=== PATIENT | female | born 1955 | race Caucasian/White ===

== ENCOUNTER → 2017-05-03 | Outpatient (CLI) | payer MEDICARE ==
--- NOTE | 2017-05-03 18:46 | Diagnostic Imaging Report ---
INDICATION: Routine screening. Comparison is made with prior studies from 08/17/2015 and 03/30/2014. The current study was also evaluated with a Computer Aided Detection (CAD) system. FINDINGS: Moderate parenchymal density is noted bilaterally. A well-defined nodule in the inner aspect of the left breast is noted and appears benign. No new mass or malignant-appearing microcalcifications are seen. The axillae are unremarkable. IMPRESSION: No mammographic features suspicious for malignancy are identified. ACR BI-RADS Category 2: Benign findings. Result letter will be mailed to the patient. Note: At least 10% of breast cancer is not imaged by mammography. Dictated by: Dictated on workstation # [id number]
== END ==
LOC: RAD 10:43
PROVIDERS: ATTEND Family Medicine
DX: Z12.31 Encounter for screening mammogram for malignant neoplasm of breast (principal)
CPT/HCPCS: 77067

== ENCOUNTER → 2017-10-11 | Outpatient (CLI) | payer MEDICARE ==
--- NOTE | 2017-10-11 10:07 | Diagnostic Imaging Report ---
INDICATION: Osteoporosis screening. Comparison is made with prior exam from 03/21/2013. Bone mineral analysis of the lumbar spine and both hips was performed. Bone mineral density of the lumbar spine L2-L4 is 1.155 with a T score -0.4. This compares with 1.115 and -0.7. Bone mineral density left femoral neck is 0.794 with T score -1.8. This compares with 0.768 and -1.9. Bone mineral density right femoral neck 0.877 with a T score of -1.2. This compares with 0.798 and -1.7. IMPRESSION: Normal bone mineral density of the lumbar spine with osteopenia of bilateral femoral necks. Dictated by: Dictated on workstation # [id number]
== END ==
LOC: RAD 08:57
PROVIDERS: ATTEND Internal Medicine
DX: Z13.820 Encounter for screening for osteoporosis (principal); M85.88 Other specified disorders of bone density and structure, other site; S82.841A Displaced bimalleolar fracture of right lower leg, initial encounter for closed fracture
CPT/HCPCS: 77080

== ENCOUNTER → 2020-03-23 | Outpatient (CLI) | payer MEDICARE ==
--- NOTE | 2020-03-23 13:15 | Diagnostic Imaging Report ---
INDICATION: Postmenopausal. COMPARISON: This study was compared to the prior exam of 10/11/2017. FINDINGS: The T-score for the spine is -0.5. On prior exam, the T-score was -0.4. The total T-score for the left hip is -1.0 and for the right hip -1.1. On the prior exam, the respective T-scores were -1.2 and -0.8. The T-score for the left femoral neck is -2.0 and for the right femoral neck -1.8. On the prior exam, the scores were -1.8 and -1.2. AP Spine L1-L4: [BMD (g/cm2): 1.140] [T-Score: -0.5] [Z-Score: 0.3] [BMD Previous: 1.155] [BMD % Change: -1.3] LT Hip Neck: [BMD (g/cm2): 0.755] [T-Score: -2.0] [Z-Score: -1.1] LT Hip Total: [BMD (g/cm2):0.881] [T-Score:-1.0] [Z-Score: -0.4] [BMD Previous: 0.862] [BMD % Change: 2.2] RT Hip Neck: [BMD (g/cm2):0.784] [T-Score:-1.8] [Z-Score:-0.9] RT Hip Total: [BMD (g/cm2):0.874] [T-score:-1.1] [Z-Score:-0.4] [BMD Previous:0.913] [BMD % Change:-4.3] *Indicates significant change from prior examination based on 95% confidence level. World Health Organization criteria for BMD interpretation classify patients as Normal (T-score at or above -1.0), Osteopenic (T-score between -1.0 and -2.5) or Osteoporotic (T-score at or below -2.5). LIMITATIONS AND MODIFICATION: None. FRACTURE RISK (FRAX SCORE): The ten year probability of (%): Major Osteoporotic Fracture: [16.4] Hip Fracture: [2.3] IMPRESSION: 1. The bone mineral density of the spine is essentially no different than on the prior exam. The T-score remains within normal limits. 2. The total T-score for the left hip has improved and the T-score is now at the lower extent of normal. Conversely, there has been a decrease in the bone mineral density of the right hip and the T-score now indicates mild osteopenia. 3. There has also been a decrease in the bone mineral density of each femoral neck. However, the T-score values remain within the range of osteopenia. 4. See below National Osteoporosis Foundation guidelines on when to potentially initiate pharmacologic therapy. Based on the National Osteoporosis Foundation Guidelines, pharmacologic treatment should be initiated in any of the following, unless clinical conditions suggest otherwise: * Any patient with prior fragility fracture of the hip or vertebrae. A spine fracture indicates 5X risk for subsequent spine fracture and 2X risk for subsequent hip fracture. * Osteoporosis (T-score <-2.5). * Postmenopausal women and men age 50 and older with low bone mass/osteopenia (T-score between -1.0 and -2.5) by DXA and 10-year major osteoporotic fracture greater than 20% or a 10-year probability of hip fracture greater than 3%. These fracture risks are supplied above in the FRAX score, if applicable. * Clinician judgement and/or patient preferences may indicate treatment for people with 10-year fracture probabilities above or below these levels. Dictated by: Dictated on workstation # [id number]
== END ==
LOC: RAD 10:31
PROVIDERS: ATTEND Internal Medicine
DX: M85.89 Other specified disorders of bone density and structure, multiple sites (principal); N95.9 Unspecified menopausal and perimenopausal disorder
CPT/HCPCS: 77080

== ENCOUNTER 2020-06-28 07:12 | Outpatient (RCR) | payer MEDICARE ==
[~2020-06-28] VITALS: Ht 160 cm; Wt 81.3 kg
[2020-06-28] MEDS ORDERED: VORT10TA PO (13:48)
[2020-06-28] MEDS ORDERED: BREX2TAB PO (13:48)
[2020-06-28] MEDS ORDERED: SULI150T PO (13:48)
[2020-06-28] MEDS ORDERED: AMLO-250 PO (13:48)
[2020-06-28] MEDS ORDERED: GABA800T10 PO (13:48)
[2020-06-28] MEDS ORDERED: HYDR-3820 PO (13:48)
[2020-06-28] MEDS ORDERED: TIZA4CAP PO (13:48)
[2020-06-28] MEDS ORDERED: MTP100TCR PO (13:48)
[2020-06-28] MEDS ORDERED: TEMA15CA PO (13:48)
== END 2020-06-28 14:08 | disposition home or self-care (01) ==
LOC: PREOP 07:12
PROVIDERS: ATTEND Surgery
DX: Z01.818 Encounter for other preprocedural examination (principal)

== ENCOUNTER → 2020-06-28 | Outpatient (CLI) | payer MEDICARE ==
[~2020-06-28] MED LIST: AMLO-250 PO; BREX2TAB PO; GABA800T10 PO; HYDR-3820 PO; MTP100TCR PO; SULI150T PO; TEMA15CA PO; TIZA4CAP PO; VORT10TA PO
--- NOTE | 2020-06-28 20:35 | Diagnostic Imaging Report ---
INDICATION: Routine screening. Comparison is made with prior mammogram 05/03/2017 and 08/17/2015. 2-D and 3-D bilateral screening mammography was performed with CAD. The current study was also evaluated with a Computer Aided Detection (CAD) system. 3-D tomosynthesis was also performed and reviewed. Both breasts are heterogeneously dense, limiting the sensitivity of mammography. The parenchymal pattern is stable. No mass or malignant appearing microcalcifications are seen. There are benign calcifications. Axillae are unremarkable. IMPRESSION: No mammographic features suspicious for malignancy are identified. ACR BI-RADS Category 2: Benign findings. Result letter will be mailed to the patient. Note: At least 10% of breast cancer is not imaged by mammography. Dictated by: Dictated on workstation # [id number]
== END ==
LOC: RAD 14:14
PROVIDERS: ATTEND Nurse Practitioner Family
DX: Z12.31 Encounter for screening mammogram for malignant neoplasm of breast (principal)
CPT/HCPCS: 77063; 77067

== ENCOUNTER 2020-07-05 10:23 | Day surgery (SDC) | payer MEDICARE ==
[~2020-07-05] VITALS: Ht 160 cm; Wt 81.3 kg
[2020-07-05] MEDS ORDERED: LACTATED RINGERS 1,000 ML IV ONE (10:25)
[2020-07-05] MEDS ORDERED: LACTATED RINGERS 1,000 ML IV STA (10:31)
[2020-07-05 10:42] VITALS: BP 147/91
[2020-07-05] MEDS ORDERED: HURRICAINE EXT TUBE (BENZOCAINE) XX PRN (10:45)
--- NOTE | 2020-07-05 11:32 | Progress Note-Pre Operative ---
Pre-Operative Progress Note H&P Reviewed The H&P was reviewed, patient examined and no changes noted. Time Seen by Provider: 11:29 Date H&P Reviewed: Jul 05, 2020 Time H&P Reviewed: 11:30 Pre-Operative Diagnosis: N/V, MARTITA Castillo DO Jul 05, 2020 11:32
[2020-07-05] MEDS ORDERED: HURRICAINE EXT TUBE (BENZOCAINE) ONE (11:49)
[2020-07-05] MEDS ORDERED: MIDAZOLAM 2 MG/2 ML (VERSED) VIAL ONE (11:53)
[2020-07-05] MEDS ORDERED: PROPOFOL INJECTION 50 ML IV ONE (11:53)
[2020-07-05 12:30] VITALS: BP 90/50
--- NOTE | 2020-07-05 12:32 | Progress Note-Post Operative ---
Post-Operative Progess Note Surgeon (s)/General Surgeon (s) Surgeon MARTITA WHITE DO General Surgeon: none Pre-Operative Diagnosis N/V, Screening Post-Operative Diagnosis ? gastric ulcer Poor prep int hemorrhoids Procedure & Operative Findings Date of Procedure 07/05/20 Procedure Performed/Findings EGD with bx Colon Anesthesia Type IV sedation by DOOR ASSEMBLER Estimated Blood Loss Estimated blood loss (mL): scant Specimens/Packing Specimens Removed stomach bx GE jxn bx MARTITA WHITE DO Jul 05, 2020 12:32
--- NOTE | 2020-07-05 12:33 | Endoscopy Discharge Instruct ---
Endo Procedure/Findings Findings 1.: Gastric Ulcer 2.: Other Findings (Poor Prep) 3.: Internal Hemorrhoids Discharge Instructions - Activity: You might feel a little sleepy until tomorrow. This is due to the medicine you received to relax you. Until tomorrow, you should: NOT drive a car, operate machinery or power tools. NOT drink any alcoholic beverages. NOT make any important decisions or sign importortant papers. Do not return to work until tomorrow, unless otherwise instructed. Resume previous activities tomorrow. Diet: Start by taking liquids. If you tolerate liquids, advance to solid food. 1.: Colonoscopy in 1 year, EGD in 3 years Notify Physician - If you experience excessive bleeding, unusual abdominal pain, fever, or chest pain, contact your doctor immediately. MARTITA WHITE DO Jul 05, 2020 12:33
[2020-07-05 12:35] VITALS: BP 99/55
[2020-07-05 12:40] VITALS: BP 150/67
[2020-07-05 13:05] VITALS: BP 164/88
[2020-07-05 13:15] VITALS: BP 164/88
--- NOTE | 2020-07-05 13:25 | Anesthesia-General Post-Op ---
MAC Patient Condition Mental Status/LOC: Same as Preop Cardiovascular: Satisfactory Nausea/Vomiting: Absent Respiratory: Satisfactory Pain: Controlled Complications: Absent Post Op Complications Complications None Follow Up Care/Instructions Patient Instructions None needed. Anesthesiology Discharge Order Discharge Order Patient is doing well, no complaints, stable vital signs, no apparent adverse anesthesia problems. No complications reported per nursing. JODEE MORALES CRNA Jul 05, 2020 13:25
--- NOTE | 2020-07-06 21:27 | OPERATIVE REPORT ---
DATE OF SERVICE: 07/05/2020 PREOPERATIVE DIAGNOSES: Nausea, vomiting and screening colonoscopy. POSTOPERATIVE DIAGNOSES: 1. Questionable stomach ulcer. 2. Poor prep and internal hemorrhoids. PROCEDURES: 1. EGD with biopsy. 2. Colonoscopy. SURGEON: Tommy Pedroza DO BARREL LINE OPERATOR: None. ANESTHESIA: IV sedation by the MERCHANDISING INTERN. SPECIMEN: Biopsy from the stomach remnant as well as biopsy of the GE junction. BLOOD LOSS: Scant. FLUIDS: Per anesthesia. POSTOPERATIVE CONDITION: Stable. INDICATION FOR PROCEDURE: The patient is a 64-year-old female who has been having some nausea, vomiting with a history of gastric bypass Yassine-en-Y needed a workup. She has also never had a colonoscopy or has not had one in 10 years and needs a screening. FINDINGS: The patient had a questionable ulcer in the stomach remnant and had a poor prep, so could not really assess the colon, she did have some internal hemorrhoids. PROCEDURE NOTE: After informed consent was obtained, the patient was brought to the endoscopy suite, placed in bed in left lateral decubitus position. She was administered IV sedation by the MERCHANDISING INTERN who then monitored her vitals the entire time, heart rate, blood pressure and pulse ox. We started with the EGD, placing scope down the mouth through the esophagus and into the remnant of the stomach. We were right into the small intestine, looked at both limbs of the small intestine, they looked okay. We pulled back into the stomach, looked like there may have been an ulcer, took a picture of this and did a biopsy there and then did a biopsy at the GE junction. At this point then pulled the scope up the esophagus and out the mouth. Switched camera, switched gloves, went down below and started the colonoscopy. Unfortunately, she had a lot of retained fecal material, mostly liquid, but some solid pieces, unable to suction all of it out. Able to get the scope all the way just outside the cecum in the ascending colon, took a picture of the cecum and what looked like the appendiceal orifice and then slowly withdrew the scope insufflating the circumferential singh, unfortunately unable to see all the singh because of the retained fecal material and unable to be suctioned all this out, took a picture of this, went down the transverse colon into the splenic flexure, descending colon, sigmoid and rectum and she had some small internal hemorrhoids. At this point, I removed the scope. She will need a repeat in a year because we could not see all of the singh. She tolerated the procedure well and was recovered in endoscopy suite. Job ID: [id number] DocumentID: [id number] Dictated Date: 07/06/2020 17:25:34 Baggage Checker Date: 07/06/2020 21:26:46 Dictated By: TOMMY PEDROZA DO
== END 2020-07-05 13:15 | disposition home or self-care (01) ==
LOC: ENDO 10:23
PROVIDERS: ATTEND Surgery
DX: Z12.11 Encounter for screening for malignant neoplasm of colon (principal); K20.90 Esophagitis, unspecified without bleeding; K29.50 Unspecified chronic gastritis without bleeding; K64.8 Other hemorrhoids; I10 Essential (primary) hypertension; F41.9 Anxiety disorder, unspecified; F32.9 Major depressive disorder, single episode, unspecified; Z79.899 Other long term (current) drug therapy; Z88.0 Allergy status to penicillin; Z88.2 Allergy status to sulfonamides; Z88.8 Allergy status to other drugs, medicaments and biological substances; Z80.3 Family history of malignant neoplasm of breast; Z80.1 Family history of malignant neoplasm of trachea, bronchus and lung
CPT/HCPCS: 43239; G0121; 88305; 88342

== ENCOUNTER 2020-11-04 16:02 | Emergency (ER) | payer MEDICARE ==
[~2020-11-04] VITALS: Ht 157.4 cm; Wt 78.0 kg
--- NOTE | 2020-11-04 16:35 | ED Cardiac General ---
History of Present Illness General Chief Complaint: Cardiac/General Problems Stated Complaint: HIGH BLOOD PRESSURE Source: patient Exam Limitations: no limitations (RANCHO CLEMENT APRN) History of Present Illness Date Seen by Provider: Nov 04, 2020 Time Seen by Provider: 16:33 Initial Comments Take 2 to ER from [facility] with reports of high blood pressure at 220/108. She has taken a total of 300 mg of Toprol-XL. She had a knee replacement 1 month ago. She ran out of a 28-day supply of hydrocodone in 14 days. Her last dose was just before she came. She has no symptoms. Timing/Duration: changing over time Severity: moderate Activities at Onset: none Prior CP/Workup: no prior chest pain NTG SL CRYSTAL MOUNTER: No ASA po CRYSTAL MOUNTER: No Associated Systoms: Headaches (RANCHO CLEMENT APRN) Allergies and Home Medications Allergies Coded Allergies: Penicillins (Verified Allergy, Unknown, 06/28/20) Sulfa (Sulfonamide Antibiotics) (Verified Allergy, Unknown, 06/28/20) doxepin (Verified Allergy, Unknown, 06/28/20) escitalopram (Verified Allergy, Unknown, 06/28/20) lithium (Verified Allergy, Unknown, 06/28/20) Home Medications Amlodipine Besylate 5 Mg Tablet, 5 MG PO DAILY, (Reported) Brexpiprazole 2 Mg Tablet, 2 MG PO DAILY, (Reported) Gabapentin 800 Mg Tablet, 4,200 MG PO DAILY, (Reported) Hydrocodone/Acetaminophen 1 Each Tablet, 1 EACH PO TID, (Reported) Lisinopril 10 Mg Tablet, 10 MG PO DAILY Prescribed by: RANCHO CLEMENT on 11/04/20 456 Metoprolol Succinate 100 Mg Tab.er.24h, 100 MG PO DAILY, (Reported) Sulindac 150 Mg Tablet, 150 MG PO DAILY, (Reported) Temazepam 15 Mg Capsule, 15 MG PO DAILY, (Reported) Tizanidine HCl 4 Mg Capsule, 4 MG PO DAILY, (Reported) Vortioxetine Hydrobromide 10 Mg Tablet, 10 MG PO DAILY, (Reported) Patient Home Medication List Home Medication List Reviewed: Yes (RANCHO CLEMENT APRN) Review of Systems Review of Systems Constitutional: see HPI EENTM: No Symptoms Reported Respiratory: No Symptoms Reported Cardiovascular: No Symptoms Reported Gastrointestinal: See HPI, Abdominal Pain Genitourinary: No Symptoms Reported Musculoskeletal: no symptoms reported Skin: no symptoms reported Psychiatric/Neurological: No Symptoms Reported Endocrine: No Symptoms Reported Hematologic/Lymphatic: No Symptoms Reported (RANCHO CLEMENT APRN) Past Tgwkdke-Fvuplt-Dlxbab Hx Seasonal Allergies Seasonal Allergies: No (RANCHO CLEMENT APRN) Past Medical History Surgeries: Yes Gallbladder, Orthopedic Respiratory: No Cardiac: Yes Hypertension Neurological: No Genitourinary: No Gastrointestinal: Yes Chronic Constipation Musculoskeletal: Yes Arthritis, Chronic Back Pain Endocrine: No HEENT: No Cancer: No Psychosocial: Yes Anxiety, Bipolar, Depression Integumentary: No Blood Disorders: No (RANCHO CLEMENT APRN) Physical Exam Vital Signs Vital Signs - First Documented 11/04/20 16:30 Temp 36.8 Pulse 96 Resp 18 B/P (MAP) 241/106 (151) Pulse Ox 95 (CHANEL JURADO MD) Vital Signs Capillary Refill : (RANCHO CLEMENT APRN) Height, Weight, BMI Height: '" Weight: lbs. oz. kg; 31.75 BMI Method: General Appearance: No Apparent Distress, WD/WN Neck: Full Range of Motion, Normal Inspection Respiratory: No Accessory Muscle Use, No Respiratory Distress Cardiovascular: Regular Rate, Rhythm, Normal Peripheral Pulses, Other (Heart rate is 92 sinus) Gastrointestinal: Non Tender, Soft Extremity: Normal Capillary Refill, Normal Inspection, Other (left knee inc ision clean dry intact. trace edema left leg not unexpected after knee replacement. ) Neurologic/Psychiatric: Alert, Oriented x3 Skin: Normal Color, Warm/Dry (RANCHO CLEMENT APRN) Progress/Results/Core Measures Results/Orders Lab Results Laboratory Tests Test 11/04/20 16:37 Range/Units White Blood Count 6.9 4.3-11.0 10^3/uL Red Blood Count 4.67 3.80-5.11 10^6/uL Hemoglobin 12.9 11.5-16.0 g/dL Hematocrit 42 35-52 % Mean Corpuscular Volume 91 80-99 fL Mean Corpuscular Hemoglobin 28 25-34 pg Mean Corpuscular Hemoglobin Concent 31 L 32-36 g/dL Red Cell Distribution Width 14.1 10.0-14.5 % Platelet Count 305 130-400 10^3/uL Mean Platelet Volume 9.9 9.0-12.2 fL Immature Granulocyte % (Auto) 0 % Neutrophils (%) (Auto) 62 42-75 % Lymphocytes (%) (Auto) 26 12-44 % Monocytes (%) (Auto) 7 0-12 % Eosinophils (%) (Auto) 3 0-10 % Basophils (%) (Auto) 1 0-10 % Neutrophils # (Auto) 4.3 1.8-7.8 10^3/uL Lymphocytes # (Auto) 1.8 1.0-4.0 10^3/uL Monocytes # (Auto) 0.5 0.0-1.0 10^3/uL Eosinophils # (Auto) 0.2 0.0-0.3 10^3/uL Basophils # (Auto) 0.1 0.0-0.1 10^3/uL Immature Granulocyte # (Auto) 0.0 0.0-0.1 10^3/uL Prothrombin Time 12.4 12.2-14.7 SEC INR Comment 0.9 0.8-1.4 Activated Partial Thromboplast Time 31 24-35 SEC Sodium Level 146 H 135-145 MMOL/L Potassium Level 4.5 3.6-5.0 MMOL/L Chloride Level 106 98-107 MMOL/L Carbon Dioxide Level 23 21-32 MMOL/L Anion Gap 17 H 5-14 MMOL/L Blood Urea Nitrogen 11 7-18 MG/DL Creatinine 0.83 0.60-1.30 MG/DL Estimat Glomerular Filtration Rate 70 BUN/Creatinine Ratio 13 Glucose Level 156 H 70-105 MG/DL Calcium Level 10.0 8.5-10.1 MG/DL Corrected Calcium 8.5-10.1 MG/DL Magnesium Level 1.9 1.6-2.4 MG/DL Total Bilirubin 0.4 0.1-1.0 MG/DL Aspartate Amino Transf (AST/SGOT) 31 5-34 U/L Alanine Aminotransferase (ALT/SGPT) 28 0-55 U/L Alkaline Phosphatase 219 H 40-136 U/L Myoglobin 23.6 10.0-92.0 NG/ML Troponin I < 0.028 <0.028 NG/ML Total Protein 8.2 6.4-8.2 GM/DL Albumin 4.6 H 3.2-4.5 GM/DL (CHANEL JURADO MD) Vital Signs/I&O 11/04/20 11/04/20 16:30 18:07 Temp 36.8 Pulse 96 86 Resp 18 18 B/P (MAP) 241/106 (151) 168/98 (151) Pulse Ox 95 95 (CHANEL JURADO MD) Departure Communication (Admissions) 1748-blood pressure 189/99 heart rate 81. I will give her a prescription for lisinopril to add at home. She states her BP is usually quite high at home 1805-BP 168/98. HR 81. Will dc to home with daughter. Copy of labs given. (RANCHO CLEMENT APRN) Communication (PCP) Brought to the (RANCHO CLEMENT APRN) Impression Primary Impression: Hypertension Disposition: HOME, SELF-CARE Condition: Stable Departure-Patient Inst. Decision time for Depature: 17:42 (RANCHO CLEMENT APRN) Referrals: MAGDI LOUIS MD (PCP/Family) Primary Care Physician Patient Instructions: High Blood Pressure ED Add. Discharge Instructions: 1. Add the lisinopril to your metoprolol. Follow-up with primary care. All discharge instructions reviewed with patient and/or family. Voiced understanding. Scripts Lisinopril (Lisinopril) 10 Mg Tablet 10 MG PO DAILY, #14 TAB Prov: RANCHO CLEMENT APRN 11/04/20 ATTENDING PHYSICIAN NOTE: I was physically present as attending physician in the emergency department d uring the care of this patient, but I was not directly involved in the decision making or delivery of care for this patient. (CHANEL JURADO MD) RANCHO CLEMENT APRN Nov 04, 2020 16:35 CHANEL JURADO MD Nov 05, 2020 20:44
[2020-11-04] MEDS ORDERED: cloNIDine 0.1 MG (CATAPRES) TAB PO ONE (16:45)
[2020-11-04 16:48] LABS: BASOPHILS # (AUTO) 0.1 10^3/uL (0.0-0.1); BASOPHILS % (AUTO) 1 % (0-10); EOSINOPHILS # (AUTO) 0.2 10^3/uL (0.0-0.3); EOSINOPHILS % (AUTO) 3 % (0-10); HEMATOCRIT 42 % (35-52); HEMOGLOBIN 12.9 g/dL (11.5-16.0); LYMPHOCYTES # (AUTO) 1.8 10^3/uL (1.0-4.0); LYMPHOCYTES % (AUTO) 26 % (12-44); MEAN CORPUSCULAR HEMOGLOBIN 28 pg (25-34); MEAN CORPUSCULAR HGB CONC 31 g/dL (32-36); MEAN CORPUSCULAR VOLUME 91 fL (80-99); MEAN PLATELET VOLUME 9.9 fL (9.0-12.2); MONOCYTES # (AUTO) 0.5 10^3/uL (0.0-1.0); MONOCYTES % (AUTO) 7 % (0-12); NEUTROPHILS # (AUTO) 4.3 10^3/uL (1.8-7.8); NEUTROPHILS % (AUTO) 62 % (42-75); PLATELET COUNT 305 10^3/uL (130-400); WHITE BLOOD COUNT 6.9 10^3/uL (4.3-11.0)
--- NOTE | 2020-11-04 16:59 | Diagnostic Imaging Report ---
INDICATION: Chest pain. Frontal chest obtained at 4:53 p.m. Heart and mediastinal silhouette are normal in appearance. The lungs are clear. There is no pneumothorax or pleural fluid. IMPRESSION: Negative chest. Dictated by: Dictated on workstation # [id number]
[2020-11-04 17:04] LABS: ALBUMIN 4.6 GM/DL (3.2-4.5)
[2020-11-04 17:05] LABS: CHLORIDE 106 MMOL/L (98-107); POTASSIUM 4.5 MMOL/L (3.6-5.0); SODIUM 146 MMOL/L (135-145)
[2020-11-04 17:07] LABS: GLUCOSE 156 MG/DL (70-105); TOTAL PROTEIN 8.2 GM/DL (6.4-8.2)
[2020-11-04 17:08] LABS: CARBON DIOXIDE 23 MMOL/L (21-32); INR 0.9 (0.8-1.4); PROTHROMBIN TIME PATIENT 12.4 SEC (12.2-14.7)
[2020-11-04 17:09] LABS: BILIRUBIN,TOTAL 0.4 MG/DL (0.1-1.0)
[2020-11-04 17:11] LABS: CREATININE SERUM 0.83 MG/DL (0.60-1.30); GFR ESTIMATED 70
[2020-11-04 17:12] LABS: BUN/CREATININE RATIO 13
[2020-11-04 17:14] LABS: ALANINE AMINOTRANSFERASE 28 U/L (0-55); MAGNESIUM 1.9 MG/DL (1.6-2.4)
[2020-11-04] MEDS ORDERED: lisINopril 20 MG (PRINIVIL) TABLET PO ONE (17:15)
[2020-11-04] MEDS ORDERED: KETOROLAC 30 MG/ML VIAL IVP ONE (17:15)
[2020-11-04] MEDS ORDERED: LISI10TA25 PO (17:43)
[2020-11-04 18:07] VITALS: BP 168/98
[2020-11-04 18:30] LABS: ALKALINE PHOSPHATASE 219 U/L (40-136)
== END 2020-11-04 18:07 | disposition home or self-care (01) ==
LOC: EDUNIT# 16:02 → ER 16:04
DX: I10 Essential (primary) hypertension (principal); G89.29 Other chronic pain; M54.9 Dorsalgia, unspecified; F32.9 Major depressive disorder, single episode, unspecified; Z79.891 Long term (current) use of opiate analgesic; Z79.899 Other long term (current) drug therapy
CPT/HCPCS: 36415; 71045; 80053; 83735; 83874; 84484; 85025; 85610; 85730; 93005; 93041

== ENCOUNTER 2020-11-11 17:29 | Observation (INO) | payer MEDICARE ==
[~2020-11-11] VITALS: Ht 160 cm; Wt 77.3 kg
[~2020-11-11 17:29] MED LIST changes: +LISI10TA25 PO
[2020-11-11] MEDS ORDERED: lisINopril 20 MG (PRINIVIL) TABLET PO ONE (18:00)
[2020-11-11] MEDS ORDERED: hydrALAZINE (APESOLINE) 20 MG/ML VIAL IV ONE ×3 (18:00→20:15)
[2020-11-11 18:02] LABS: BASOPHILS % (AUTO) 1 % (0-10); EOSINOPHILS # (AUTO) 0.1 10^3/uL (0.0-0.3); EOSINOPHILS % (AUTO) 2 % (0-10); HEMATOCRIT 44 % (35-52); HEMOGLOBIN 13.6 g/dL (11.5-16.0); LYMPHOCYTES # (AUTO) 1.5 10^3/uL (1.0-4.0); LYMPHOCYTES % (AUTO) 22 % (12-44); MEAN CORPUSCULAR HEMOGLOBIN 28 pg (25-34); MEAN CORPUSCULAR HGB CONC 31 g/dL (32-36); MEAN CORPUSCULAR VOLUME 90 fL (80-99); MEAN PLATELET VOLUME 9.5 fL (9.0-12.2); MONOCYTES # (AUTO) 0.4 10^3/uL (0.0-1.0); MONOCYTES % (AUTO) 6 % (0-12); NEUTROPHILS # (AUTO) 4.7 10^3/uL (1.8-7.8); NEUTROPHILS % (AUTO) 68 % (42-75); PLATELET COUNT 318 10^3/uL (130-400); WHITE BLOOD COUNT 6.9 10^3/uL (4.3-11.0)
--- NOTE | 2020-11-11 18:08 | ED Cardiac General ---
History of Present Illness General Chief Complaint: Cardiac/General Problems Stated Complaint: HIGH BLOOD PRESSURE / DIZZINESS / SENT OVER BY [facility] Source: patient History of Present Illness Date Seen by Provider: Nov 11, 2020 Time Seen by Provider: 18:05 Initial Comments To ER by private vehicle with reports of high blood pressure, dizziness. She was sent over by [facility]. She was seen here recently for the same. We gave her lisinopril and clonidine 0.2 mg and her pressure fell from 240 down to 160. She was sent home. She presented to [facility] again today for follow-up and was found again to be hypertensive at 220s over 100. She has taken 200 mg of metoprolol, 10 mg of Norvasc, 10 mg of lisinopril and has a 0.2 mg clonidine patch on. The patch was placed Sunday or Sunday. She denies chest pain or shortness of breath. She just saw Dr. Louis today and had a 24-hour urine sample ordered. Timing/Duration: changing over time Severity: moderate Location: central Prior CP/Workup: no prior chest pain NTG SL SUPPORT SERVICES SPECIALIST: No ASA po SUPPORT SERVICES SPECIALIST: No Associated Systoms: No Headaches, No Nausea/Vomiting Allergies and Home Medications Allergies Coded Allergies: Penicillins (Verified Allergy, Unknown, 06/28/20) Sulfa (Sulfonamide Antibiotics) (Verified Allergy, Unknown, 06/28/20) doxepin (Verified Allergy, Unknown, 06/28/20) escitalopram (Verified Allergy, Unknown, 06/28/20) lithium (Verified Allergy, Unknown, 06/28/20) Home Medications Amlodipine Besylate 5 Mg Tablet, 5 MG PO DAILY, (Reported) Brexpiprazole 2 Mg Tablet, 2 MG PO DAILY, (Reported) Gabapentin 800 Mg Tablet, 4,200 MG PO DAILY, (Reported) Hydrocodone/Acetaminophen 1 Each Tablet, 1 EACH PO TID, (Reported) Lisinopril 10 Mg Tablet, 10 MG PO DAILY Prescribed by: RANCHO CLEMENT on 11/04/20 4677 Metoprolol Succinate 100 Mg Tab.er.24h, 100 MG PO DAILY, (Reported) Sulindac 150 Mg Tablet, 150 MG PO DAILY, (Reported) Temazepam 15 Mg Capsule, 15 MG PO DAILY, (Reported) Tizanidine HCl 4 Mg Capsule, 4 MG PO DAILY, (Reported) Vortioxetine Hydrobromide 10 Mg Tablet, 10 MG PO DAILY, (Reported) Patient Home Medication List Home Medication List Reviewed: Yes Review of Systems Review of Systems Constitutional: see HPI EENTM: No Symptoms Reported Respiratory: No Symptoms Reported; Denies Cough, Denies Orthopnea, Denies Shortness of Air, Denies SOA With Exertion, Denies SOA at Rest Cardiovascular: No Symptoms Reported; Denies Chest Pain, Denies Lightheadedness Gastrointestinal: See HPI, Abdominal Pain Genitourinary: No Symptoms Reported Musculoskeletal: no symptoms reported Skin: no symptoms reported Psychiatric/Neurological: No Symptoms Reported Endocrine: No Symptoms Reported Hematologic/Lymphatic: No Symptoms Reported Past Gfgcnjt-Zioenp-Xwnsyk Hx Seasonal Allergies Seasonal Allergies: No Past Medical History Surgeries: Yes Gallbladder, Orthopedic Respiratory: No Cardiac: Yes Hypertension Neurological: No Genitourinary: No Gastrointestinal: Yes Chronic Constipation Musculoskeletal: Yes Arthritis, Chronic Back Pain Endocrine: No HEENT: No Cancer: No Psychosocial: Yes Anxiety, Bipolar, Depression Integumentary: No Blood Disorders: No Physical Exam Vital Signs Capillary Refill : Height, Weight, BMI Height: '" Weight: lbs. oz. kg; 31.00 BMI Method: General Appearance: No Apparent Distress, WD/WN HEENT: PERRL/EOMI, TMs Normal Neck: Full Range of Motion, Normal Inspection Respiratory: Normal Breath Sounds, No Accessory Muscle Use, No Respiratory Distress Gastrointestinal: Normal Bowel Sounds, Non Tender, Soft Extremity: Normal Capillary Refill, Normal Inspection Neurologic/Psychiatric: Alert, Oriented x3 Skin: Normal Color, Warm/Dry Progress/Results/Core Measures Results/Orders Lab Results Laboratory Tests Test 11/11/20 17:48 11/11/20 18:11 Range/Units White Blood Count 6.9 4.3-11.0 10^3/uL Red Blood Count 4.85 3.80-5.11 10^6/uL Hemoglobin 13.6 11.5-16.0 g/dL Hematocrit 44 35-52 % Mean Corpuscular Volume 90 80-99 fL Mean Corpuscular Hemoglobin 28 25-34 pg Mean Corpuscular Hemoglobin Concent 31 L 32-36 g/dL Red Cell Distribution Width 14.1 10.0-14.5 % Platelet Count 318 130-400 10^3/uL Mean Platelet Volume 9.5 9.0-12.2 fL Immature Granulocyte % (Auto) 0 % Neutrophils (%) (Auto) 68 42-75 % Lymphocytes (%) (Auto) 22 12-44 % Monocytes (%) (Auto) 6 0-12 % Eosinophils (%) (Auto) 2 0-10 % Basophils (%) (Auto) 1 0-10 % Neutrophils # (Auto) 4.7 1.8-7.8 10^3/uL Lymphocytes # (Auto) 1.5 1.0-4.0 10^3/uL Monocytes # (Auto) 0.4 0.0-1.0 10^3/uL Eosinophils # (Auto) 0.1 0.0-0.3 10^3/uL Basophils # (Auto) 0.0 0.0-0.1 10^3/uL Immature Granulocyte # (Auto) 0.0 0.0-0.1 10^3/uL Sodium Level 143 135-145 MMOL/L Potassium Level 4.8 3.6-5.0 MMOL/L Chloride Level 106 98-107 MMOL/L Carbon Dioxide Level 25 21-32 MMOL/L Anion Gap 12 5-14 MMOL/L Blood Urea Nitrogen 13 7-18 MG/DL Creatinine 1.16 0.60-1.30 MG/DL Estimat Glomerular Filtration Rate 47 BUN/Creatinine Ratio 11 Glucose Level 207 H 70-105 MG/DL Calcium Level 9.8 8.5-10.1 MG/DL Corrected Calcium 9.5 8.5-10.1 MG/DL Total Bilirubin 0.4 0.1-1.0 MG/DL Aspartate Amino Transf (AST/SGOT) 271 H 5-34 U/L Alanine Aminotransferase (ALT/SGPT) 146 H 0-55 U/L Alkaline Phosphatase 338 H 40-136 U/L Total Protein 7.8 6.4-8.2 GM/DL Albumin 4.4 3.2-4.5 GM/DL Urine Opiates Screen POSITIVE H NEGATIVE Urine Oxycodone Screen POSITIVE H NEGATIVE Urine Methadone Screen NEGATIVE NEGATIVE Urine Propoxyphene Screen NEGATIVE NEGATIVE Acetaminophen Level < 10 L 10-30 UG/ML Urine Barbiturates Screen NEGATIVE NEGATIVE Ur Tricyclic Antidepressants Screen NEGATIVE NEGATIVE Urine Phencyclidine Screen NEGATIVE NEGATIVE Urine Amphetamines Screen NEGATIVE NEGATIVE Urine Methamphetamines Screen NEGATIVE NEGATIVE Urine Benzodiazepines Screen POSITIVE H NEGATIVE Urine Cocaine Screen NEGATIVE NEGATIVE Urine Cannabinoids Screen NEGATIVE NEGATIVE Urine Color YELLOW Urine Clarity CLEAR Urine pH 5.5 5-9 Urine Specific [place] 1.020 1.016-1.022 Urine Protein NEGATIVE NEGATIVE Urine Glucose (UA) TRACE H NEGATIVE Urine Ketones NEGATIVE NEGATIVE Urine Nitrite NEGATIVE NEGATIVE Urine Bilirubin NEGATIVE NEGATIVE Urine Urobilinogen 1.0 < = 1.0 MG/DL Urine Leukocyte Esterase NEGATIVE NEGATIVE Urine RBC (Auto) NEGATIVE NEGATIVE Urine RBC NONE /HPF Urine WBC NONE /HPF Urine Crystals PRESENT H /LPF Urine Amorphous Sediment RARE TERRENCE URATES H /LPF Urine Bacteria NEGATIVE /HPF Urine Casts NONE /LPF Urine Mucus NEGATIVE /LPF Urine Culture Indicated NO My Orders Orders - RANCHO CLEMENT APRN Lisinopril Tablet (Zestril Tablet) (11/11/20 18:00) Cbc With Automated Diff (11/11/20 17:49) Comprehensive Metabolic Panel (11/11/20 17:49) Ua Culture If Indicated (11/11/20 17:49) Ed Iv/Invasive Line Start (11/11/20 17:49) Ekg Tracing (11/11/20 17:49) Hydralazine Injection (Apresoline Inject (11/11/20 18:00) Drug Screen Stat (Urine) (11/11/20 18:30) Acetaminophen (11/11/20 18:30) Medications Given in ED Current Medications Medications Dose Ordered Sig/Kavon Route Start Time Stop Time Status Last Admin Dose Admin Hydralazine HCl 10 mg ONCE ONCE IV 11/11/20 18:00 11/11/20 18:01 DC 11/11/20 18:18 10 MG Lisinopril 20 mg ONCE ONCE PO 11/11/20 18:00 11/11/20 18:01 DC 11/11/20 18:29 20 MG Diagnostic Imaging Diagonstic Imaging: Xray Plain Films/CT/US/NM/MRI: chest Comments NAME: RANDY BEYER Enrike VANCE REC#: [id number] PT STATUS: REG ER : 1955 PHYSICIAN: RANCHO CLEMENT APRN ADMIT DATE: 11/11/20/ER Draft Date of Exam:11/11/20 CT ANGIO HEAD/NECK PROCEDURE: CT angiography of the head and CT angiography of the neck with and without contrast. TECHNIQUE: Contiguous noncontrast images were obtained from the skull base through the vertex. After intravenous contrast administration, helical CT angiography of the neck was performed. Source data was reformatted into 3D MIP projections. Delayed post contrast acquisition was also obtained. Auto Exposure Controls were utilized during the CT exam to meet ALARA standards for radiation dose reduction. INDICATION: 64-year-old female, dizziness, hypertension x1 week. Approximately 4 weeks post knee surgery. COMPARISON: None FINDINGS: NONCONTRAST CT HEAD: Generalized atrophic changes with prominence of the ventricles and sulci. There is also prominent extra-axial CSF particularly in the frontal lobe region likely owing to the atrophic changes. There is no abnormal areas of decreased attenuation to suggest edema. No midline shift or mass effect. No intracranial hemorrhage. Bony calvarium appearing to be intact. Visualized paranasal sinuses and mastoid air cells generally clear. CTA NECK: Aorta: Aortic arch is limited in evaluation with artifact present. Does appear relatively normal, with standard three vessel branching pattern. Right Common/Internal/External Carotid Artery: Tortuous slightly retropharyngeal course of the right common carotid artery. Trace calcification carotid bifurcation. No stenosis. There is slight kinking at the proximal right internal carotid artery with a tortuous course. Slight folding of the internal carotid artery is noted. There is patency to the skull base. External carotid artery is patent. Left Common/Internal/External Carotid Artery: Tortuous course of the left common carotid artery slightly folding on itself. Trace calcification of the carotid bifurcation. No stenosis. There is a tortuous, redundant course of the left internal carotid arteries patent to the skull base. External carotid artery patent. Vertebral arteries: Relatively codominant bilateral vertebral artery. There does appear to be slight narrowing at the origin of the left vertebral artery. Tortuous course of the bilateral vertebral arteries patent to the skull base, terminating into the basilar artery. Non-vascular: Groundglass opacities of the lung apices could reflect edema versus infiltrate. The airway is patent. Postoperative changes of the cervical spine at C5-C7. Likely corpectomy at C6. CTA HEAD: Anterior Circulation: Mild calcified plaque of the terminal internal carotid arteries without definitive stenosis. The bilateral middle cerebral arteries are patent and without stenosis. The anterior cerebral arteries are patent and without stenosis. Posterior Circulation: The bilateral intracranial segments of the vertebral arteries are patent. The basilar artery is patent and without stenosis. Posterior cerebral arteries are patent with persistent origin of the left DIRECTOR MEDICAL WRITING. Post Contrast Head: No concerning enhancement on delayed post-contrast imaging. IMPRESSION: 1. Negative CTA of the head. 2. Negative CTA of the neck. 3. Negative for acute intracranial abnormality. Dictated on workstation # [id number] Dict: 11/11/201946 Trans: 11/11/202015 [facility] [id number] Interpreted by: ROXI WHITAKER DO Electronically signed by: Departure Communication (Admissions) Family Conversation 184-She has a new elevation of liver function tests. She has a blood pressure of 220/100 despite her 10 mg Norvasc, 10 mg lisinopril, clonidine 0.2 mg patch, Toprol-XL 200 mg. I ordered 20 additional milligrams of lisinopril here, hydralazine 10 mg IV here. We will plan to admit for malignant hypertension with newly elevated liver function tests. Obtain renal artery ultrasound in the morning. Dr Simmons agrees wit this plan, we'll consult cardiology. Given her dizziness today I will obtain a CT angio head and neck to make sure that this hypertension is not a physiologic response to cerebral ischemia. I discussed w ith her any Tylenol use to control her knee pain that could be contributing to the elevated liver function tests and she denies any Tylenol use. 2033-angio head and neck is unremarkable. Blood pressure still 213/100. She has received 20 mg of lisinopril here, 10 mg of labetalol IV, 10 mg of hydralazine IV, and then 20 mg of hydralazine IV. I will give her a 0.1 mg clonidine tablet p.o. Her patches 0.2 mg. She is still asymptomatic alert and oriented talking and laughing with me. Has no complaints other than ongoing dizziness. EKG at 1802 shows sinus rhythm rate of [address] segment changes no ectopy Impression Primary Impression: Malignant hypertension Additional Impression: Elevated LFTs Disposition: ADMITTED INPATIENT Condition: Stable Admissions Decision to Admit Reason: Admit from ER (General) Decision to Admit/Date: Nov 11, 2020 Time/Decision to Admit Time: 18:37 Departure-Patient Inst. Referrals: MAGDI LOUIS MD (PCP/Family) Primary Care Physician RANCHO CLEMENT APRN Nov 11, 2020 18:07
[2020-11-11 18:14] LABS: ALBUMIN 4.4 GM/DL (3.2-4.5)
[2020-11-11 18:15] LABS: POTASSIUM 4.8 MMOL/L (3.6-5.0)
[2020-11-11 18:16] LABS: CALCIUM 9.8 MG/DL (8.5-10.1)
[2020-11-11 18:17] LABS: TOTAL PROTEIN 7.8 GM/DL (6.4-8.2)
[2020-11-11 18:19] LABS: BILIRUBIN,TOTAL 0.4 MG/DL (0.1-1.0)
[2020-11-11 18:21] LABS: CREATININE SERUM 1.16 MG/DL (0.60-1.30)
[2020-11-11 18:27] LABS: BILIRUBIN,URINE NEGATIVE (NEGATIVE); CLARITY,URINE CLEAR; COLOR,URINE YELLOW; GLUCOSE, URINE (UA) TRACE (NEGATIVE); KETONES,URINE NEGATIVE (NEGATIVE); LEUKOCYTE ESTERASE ,URINE NEGATIVE (NEGATIVE); NITRITE,URINE NEGATIVE (NEGATIVE); PH,URINE 5.5 (5-9); PROTEIN,URINE NEGATIVE (NEGATIVE)
[2020-11-11] MEDS ORDERED: LABETALOL HCL 20 MG/4 ML VIAL IV ONE (19:00)
[2020-11-11] MEDS ORDERED: HYDROcodone/APAP 5 MG/325 MG (LORTAB) TAB PO ONE (19:00)
[2020-11-11 19:13] LABS: AMORPHOUS SEDIMENT,UR RARE AMOR URATES /LPF; BACTERIA,URINE NEGATIVE /HPF
[2020-11-11 19:21] LABS: AMPHETAMINE SCREEN, URINE NEGATIVE (NEGATIVE); BENZODIAZEPINES SCREEN URINE POSITIVE (NEGATIVE); CANNABINOID SCREEN, URINE NEGATIVE (NEGATIVE); COCAINE SCREEN URINE NEGATIVE (NEGATIVE); METHAMPHETAMINE SCREEN URINE S NEGATIVE (NEGATIVE); OPIATE SCREEN URINE POSITIVE (NEGATIVE)
[2020-11-11 19:22] LABS: BARBITURATE SCREEN URINE NEGATIVE (NEGATIVE); METHADONE STAT NEGATIVE (NEGATIVE); OXYCODONE STAT POSITIVE (NEGATIVE); PROPOXYPHENE STAT NEGATIVE (NEGATIVE); TRICYCLIC ANTIDEPRESSANTS SCRE NEGATIVE (NEGATIVE)
[2020-11-11] MEDS ORDERED: NS 100 ML (IVPB) BAG IV ONE (19:45)
[2020-11-11] MEDS ORDERED: IOHEXOL 350 MG/ML 100 ML (OMNIPAQUE 350) VIAL IV ONE (19:45)
[2020-11-11] MEDS ORDERED: HOLD METFORMIN - RECEIVED CONTRAST 20 ML VIAL IV SCH (19:45)
[2020-11-11] MEDS ORDERED: CATHETER FLUSH 10 ML SYR IV PRN (19:45)
--- NOTE | 2020-11-11 20:18 | Diagnostic Imaging Report ---
PROCEDURE: CT angiography of the head and CT angiography of the neck with and without contrast. TECHNIQUE: Contiguous noncontrast images were obtained from the skull base through the vertex. After intravenous contrast administration, helical CT angiography of the neck was performed. Source data was reformatted into 3D MIP projections. Delayed post contrast acquisition was also obtained. Auto Exposure Controls were utilized during the CT exam to meet ALARA standards for radiation dose reduction. INDICATION: 64-year-old female, dizziness, hypertension x1 week. Approximately 4 weeks post knee surgery. COMPARISON: None FINDINGS: NONCONTRAST CT HEAD: Generalized atrophic changes with prominence of the ventricles and sulci. There is also prominent extra-axial CSF particularly in the frontal lobe region likely owing to the atrophic changes. There is no abnormal areas of decreased attenuation to suggest edema. No midline shift or mass effect. No intracranial hemorrhage. Bony calvarium appearing to be intact. Visualized paranasal sinuses and mastoid air cells generally clear. CTA NECK: Aorta: Aortic arch is limited in evaluation with artifact present. Does appear relatively normal, with standard three vessel branching pattern. Right Common/Internal/External Carotid Artery: Tortuous slightly retropharyngeal course of the right common carotid artery. Trace calcification carotid bifurcation. No stenosis. There is slight kinking at the proximal right internal carotid artery with a tortuous course. Slight folding of the internal carotid artery is noted. There is patency to the skull base. External carotid artery is patent. Left Common/Internal/External Carotid Artery: Tortuous course of the left common carotid artery slightly folding on itself. Trace calcification of the carotid bifurcation. No stenosis. There is a tortuous, redundant course of the left internal carotid arteries patent to the skull base. External carotid artery patent. Vertebral arteries: Relatively codominant bilateral vertebral artery. There does appear to be slight narrowing at the origin of the left vertebral artery. Tortuous course of the bilateral vertebral arteries patent to the skull base, terminating into the basilar artery. Non-vascular: Groundglass opacities of the lung apices could reflect edema versus infiltrate. The airway is patent. Postoperative changes of the cervical spine at C5-C7. Likely corpectomy at C6. CTA HEAD: Anterior Circulation: Mild calcified plaque of the terminal internal carotid arteries without definitive stenosis. The bilateral middle cerebral arteries are patent and without stenosis. The anterior cerebral arteries are patent and without stenosis. Posterior Circulation: The bilateral intracranial segments of the vertebral arteries are patent. The basilar artery is patent and without stenosis. 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 Post Contrast Head: No concerning enhancement on delayed post-contrast imaging. IMPRESSION: 1. Negative CTA of the head. 2. Negative CTA of the neck. 3. Negative for acute intracranial abnormality. Dictated by: Dictated on workstation # [id number]
[2020-11-11] MEDS ORDERED: cloNIDine 0.1 MG (CATAPRES) TAB PO ONE (20:45)
[2020-11-11] MEDS ORDERED: HYDROcodone/APAP 5 MG/325 MG (LORTAB) TAB ONE (22:11)
[2020-11-11] MEDS ORDERED: hydrALAZINE (APESOLINE) 20 MG/ML VIAL IV PRN (22:30)
[2020-11-11] MEDS: HYDROcodone/APAP 5 MG/325 MG (LORTAB) TAB PO PRN (22:37)
[2020-11-12] VITALS (7 sets, daily range): BP systolic 86–184; BP diastolic 50–104
[2020-11-12] MEDS: HYDROcodone/APAP 5 MG/325 MG (LORTAB) TAB PO PRN ×3 (02:00→10:16)
[2020-11-12 04:25] LABS: BASOPHILS # (AUTO) 0.1 10^3/uL (0.0-0.1); BASOPHILS % (AUTO) 1 % (0-10); EOSINOPHILS # (AUTO) 0.1 10^3/uL (0.0-0.3); EOSINOPHILS % (AUTO) 1 % (0-10); HEMATOCRIT 43 % (35-52); HEMOGLOBIN 13.7 g/dL (11.5-16.0); LYMPHOCYTES % (AUTO) 22 % (12-44); MEAN CORPUSCULAR HEMOGLOBIN 28 pg (25-34); MEAN CORPUSCULAR HGB CONC 32 g/dL (32-36); MEAN CORPUSCULAR VOLUME 89 fL (80-99); MEAN PLATELET VOLUME 9.6 fL (9.0-12.2); MONOCYTES # (AUTO) 0.7 10^3/uL (0.0-1.0); MONOCYTES % (AUTO) 7 % (0-12); NEUTROPHILS # (AUTO) 6.4 10^3/uL (1.8-7.8); NEUTROPHILS % (AUTO) 69 % (42-75); PLATELET COUNT 350 10^3/uL (130-400); WHITE BLOOD COUNT 9.3 10^3/uL (4.3-11.0)
[2020-11-12 04:37] LABS: ALBUMIN 4.4 GM/DL (3.2-4.5); POTASSIUM 4.4 MMOL/L (3.6-5.0)
[2020-11-12 04:38] LABS: CALCIUM 10.2 MG/DL (8.5-10.1)
[2020-11-12 04:40] LABS: TOTAL PROTEIN 7.7 GM/DL (6.4-8.2)
[2020-11-12 04:42] LABS: BILIRUBIN,TOTAL 0.4 MG/DL (0.1-1.0)
[2020-11-12 04:43] LABS: CREATININE SERUM 0.84 MG/DL (0.60-1.30)
[2020-11-12] MEDS: CATHETER FLUSH 10 ML SYR IV SCH ×3 (06:46→20:20)
[2020-11-12] MEDS ORDERED: amLODIPine 10 MG (NORVASC) TAB PO SCH (09:00)
[2020-11-12] MEDS ORDERED: lisINopril 20 MG (PRINIVIL) TABLET PO SCH (09:00)
[2020-11-12] MEDS ORDERED: meTOprolol SUCCINATE 100 MG (TOPROL XL) TAB PO SCH (09:00)
--- NOTE | 2020-11-12 09:26 | Diagnostic Imaging Report ---
TECHNIQUE: Live grayscale and color Doppler ultrasound was performed over the bilateral kidneys and renal arteries. REASON FOR THE EXAM: Hypertension. Evaluate for renal artery stenosis. COMPARISON: None. FINDINGS: Right: The right kidney measures 10.9 cm in length. Renal cortical thickness and echogenicity are within normal limits. A simple cortical cyst is seen in the mid right kidney measuring 2.8 x 4.1 x 3.1 cm. There is no evidence of calculi, solid focal mass or hydronephrosis. No perinephric fluid collections are identified. The peak systolic velocity in the right renal artery measures 161 cm/s. The renal artery to aorta ratio measures 0.4. The resistive indices within the right arcuate arteries measure 0.72 to 0.78. Left: The left kidney measures 11.6 cm in length. Renal cortical thickness and echogenicity are within normal limits. There is no evidence of calculi, solid focal mass, or hydronephrosis. No perinephric fluid collections are identified. The peak systolic velocity in the left renal artery measures 121 cm/s. The renal artery to aorta ratio measures 0.6. The resistive indices within the left arcuate arteries measure 0.70 to 0.75. The peak systolic velocity within the abdominal aorta measures 70 cm/s. There is no abdominal ascites. Views of the pelvis demonstrate a moderately distended urinary bladder. Both ureteral jets are seen. No large intraluminal filling defect or calculi are identified. IMPRESSION: 1. No acute renal abnormalities identified. 2. No sonographic evidence of renal artery stenosis. Dictated by: Dictated on workstation # [id number]
[2020-11-12] MEDS ORDERED: TIZA4TAB4 PO (09:43)
[2020-11-12] MEDS ORDERED: OXYC5TAB PO (09:43)
[2020-11-12] MEDS ORDERED: VORT20TA PO (09:43)
[2020-11-12] MEDS ORDERED: TRAM50TA3 PO (09:43)
[2020-11-12] MEDS ORDERED: AMLO-251 PO (09:43)
[2020-11-12] MEDS ORDERED: BREX3TAB PO (09:43)
[2020-11-12] MEDS ORDERED: IBUP-2473 PO (09:43)
[2020-11-12] MEDS ORDERED: ACET-2267 PO (09:43)
[2020-11-12] MEDS ORDERED: LISI10TA25 PO (09:43)
[2020-11-12] MEDS ORDERED: ERGO1250 PO (09:43)
[2020-11-12] MEDS ORDERED: CNC1KV IM (09:43)
[2020-11-12] MEDS ORDERED: CLON1PAT34 TD (09:43)
[2020-11-12] MEDS ORDERED: TEMA30CA PO (09:43)
[2020-11-12] MEDS ORDERED: GBPN600T PO (09:43)
--- NOTE | 2020-11-12 11:49 | Consultation-Cardiology ---
HPI-Cardiology Cardiology Consultation Date of Consultation 11/12/20 Date of Admission Time Seen by Provider: 11:46 Indication: Resistant hypertension HPI 64-year-old lady with history of depression, had knee replacement surgery and noted to be hypertensive, has been having difficulty achieving adequate blood pressure control. She was sent to the emergency room for elevated blood pressure and on arrival her blood pressure was over 220/100. Started on treatment, on my evaluation she was laying down in bed, comfortable, still having elevated blood pressure. She denied any chest pain or shortness of breath. No palpitation. No syncope or near syncopal episodes. No claudications. Home Medications & Allergies Allergies: Coded Allergies: Penicillins (Verified Allergy, Unknown, 06/28/20) Sulfa (Sulfonamide Antibiotics) (Verified Allergy, Unknown, 06/28/20) doxepin (Verified Allergy, Unknown, 06/28/20) escitalopram (Verified Allergy, Unknown, 06/28/20) lithium (Verified Allergy, Unknown, 06/28/20) Home Medication List Reviewed: Yes YPK-Vleabj-Tcrvsx Hx Patient Social History Marital Status: Employed/Student: employed Smoking Status: Never a Smoker 2nd Hand Smoke Exposure: No Recent Hopitalizations: No Have you traveled recently?: No Alcohol Use?: No Past Medical History Discussed below Family Medical History Family Medical Hx Noncontributory Review of Systems-General Review of Systems Constitutional: see HPI, malaise, weakness EENTM: see HPI, no symptoms reported Respiratory: see HPI; No cough, No dyspnea on exertion, No hemoptysis, No orthopnea, No phlegm, No short of breath, No stridor, No wheezing, No other Cardiovascular: see HPI; No chest pain, No edema, No Hx of Intervention, No palpitations, No syncope, No vascular heart diseas, No other Gastrointestinal: no symptoms reported, see HPI Genitourinary: no symptoms reported, see HPI Musculoskeletal: no symptoms reported, joint pain, other (Knee pain) Skin: no symptoms reported Psychiatric/Neurological: See HPI, Depressed Reviewed Test Results Reviewed Test Results Lab Laboratory Tests Test 11/11/20 17:48 11/11/20 18:11 11/12/20 03:24 Range/Units White Blood Count 6.9 9.3 4.3-11.0 10^3/uL Red Blood Count 4.85 4.86 3.80-5.11 10^6/uL Hemoglobin 13.6 13.7 11.5-16.0 g/dL Hematocrit 44 43 35-52 % Mean Corpuscular Volume 90 89 80-99 fL Mean Corpuscular Hemoglobin 28 28 25-34 pg Mean Corpuscular Hemoglobin Concent 31 L 32 32-36 g/dL Red Cell Distribution Width 14.1 14.6 H 10.0-14.5 % Platelet Count 318 350 130-400 10^3/uL Mean Platelet Volume 9.5 9.6 9.0-12.2 fL Immature Granulocyte % (Auto) 0 0 % Neutrophils (%) (Auto) 68 69 42-75 % Lymphocytes (%) (Auto) 22 22 12-44 % Monocytes (%) (Auto) 6 7 0-12 % Eosinophils (%) (Auto) 2 1 0-10 % Basophils (%) (Auto) 1 1 0-10 % Neutrophils # (Auto) 4.7 6.4 1.8-7.8 10^3/uL Lymphocytes # (Auto) 1.5 2.0 1.0-4.0 10^3/uL Monocytes # (Auto) 0.4 0.7 0.0-1.0 10^3/uL Eosinophils # (Auto) 0.1 0.1 0.0-0.3 10^3/uL Basophils # (Auto) 0.0 0.1 0.0-0.1 10^3/uL Immature Granulocyte # (Auto) 0.0 0.0 0.0-0.1 10^3/uL Sodium Level 143 145 135-145 MMOL/L Potassium Level 4.8 4.4 3.6-5.0 MMOL/L Chloride Level 106 107 98-107 MMOL/L Carbon Dioxide Level 25 22 21-32 MMOL/L Anion Gap 12 16 H 5-14 MMOL/L Blood Urea Nitrogen 13 9 7-18 MG/DL Creatinine 1.16 0.84 0.60-1.30 MG/DL Estimat Glomerular Filtration Rate 47 69 BUN/Creatinine Ratio 11 11 Glucose Level 207 H 159 H 70-105 MG/DL Calcium Level 9.8 10.2 H 8.5-10.1 MG/DL Corrected Calcium 9.5 9.9 8.5-10.1 MG/DL Total Bilirubin 0.4 0.4 0.1-1.0 MG/DL Aspartate Amino Transf (AST/SGOT) 271 H 113 H 5-34 U/L Alanine Aminotransferase (ALT/SGPT) 146 H 108 H 0-55 U/L Alkaline Phosphatase 338 H 304 H 40-136 U/L B-Type Natriuretic Peptide 92.2 <100.0 PG/ML Total Protein 7.8 7.7 6.4-8.2 GM/DL Albumin 4.4 4.4 3.2-4.5 GM/DL Urine Opiates Screen POSITIVE H NEGATIVE Urine Oxycodone Screen POSITIVE H NEGATIVE Urine Methadone Screen NEGATIVE NEGATIVE Urine Propoxyphene Screen NEGATIVE NEGATIVE Acetaminophen Level < 10 L 10-30 UG/ML Urine Barbiturates Screen NEGATIVE NEGATIVE Ur Tricyclic Antidepressants Screen NEGATIVE NEGATIVE Urine Phencyclidine Screen NEGATIVE NEGATIVE Urine Amphetamines Screen NEGATIVE NEGATIVE Urine Methamphetamines Screen NEGATIVE NEGATIVE Urine Benzodiazepines Screen POSITIVE H NEGATIVE Urine Cocaine Screen NEGATIVE NEGATIVE Urine Cannabinoids Screen NEGATIVE NEGATIVE Urine Color YELLOW Urine Clarity CLEAR Urine pH 5.5 5-9 Urine Specific [place] 1.020 1.016-1.022 Urine Protein NEGATIVE NEGATIVE Urine Glucose (UA) TRACE H NEGATIVE Urine Ketones NEGATIVE NEGATIVE Urine Nitrite NEGATIVE NEGATIVE Urine Bilirubin NEGATIVE NEGATIVE Urine Urobilinogen 1.0 < = 1.0 MG/DL Urine Leukocyte Esterase NEGATIVE NEGATIVE Urine RBC (Auto) NEGATIVE NEGATIVE Urine RBC NONE /HPF Urine WBC NONE /HPF Urine Crystals PRESENT H /LPF Urine Amorphous Sediment RARE TERRENCE URATES H /LPF Urine Bacteria NEGATIVE /HPF Urine Casts NONE /LPF Urine Mucus NEGATIVE /LPF Urine Culture Indicated NO Physical Exam Physical Exam Vital Signs Vital Signs - First Documented 11/11/20 20:53 Temp 35.8 Pulse 101 Resp 20 B/P (MAP) 223/118 (153) Pulse Ox 95 O2 Delivery Room Air Capillary Refill : Less Than 3 Seconds Height, Weight, BMI Height: '" Weight: lbs. oz. kg; 30.19 BMI Method: General Appearance: No Apparent Distress, WD/WN Eyes: Bilateral Eye Normal Inspection, Bilateral Eye PERRL, Bilateral Eye EOMI HEENT: PERRL/EOMI, TMs Normal Neck: Full Range of Motion, Normal Inspection Respiratory: Normal Breath Sounds, No Accessory Muscle Use, No Respiratory Distress Cardiovascular: Regular Rate, Rhythm, No Edema, No Gallop, No JVD, No Murmur, Normal Peripheral Pulses Gastrointestinal: Normal Bowel Sounds, Non Tender, Soft Back: Normal Inspection, No CVA Tenderness, No Vertebral Tenderness Extremity: Normal Capillary Refill, Normal Inspection Neurologic/Psychiatric: Alert, Oriented x3 Skin: Normal Color, Warm/Dry Lymphatic: No Adenopathy A/P-Cardiology Admission Diagnosis Resistant hypertension Depression Assessment/Plan Resistant hypertension on multiple medication has been maintained on Toprol, Norvasc, lisinopril in addition to clonidine patch. I will switch her to oral clonidine and evaluate tolerance and response. I will evaluate 2D echo. Renal angiogram did not show any obstructive disease. Depression, managed by primary care physician Status post knee replacement, maintained on large dose of gabapentin and hydrocodone. Requesting more pain medication. Managed by primary care physician Clinical Quality Measures AMI/AHF: ASA po Prior to arrival: KENNA Donald MD Nov 12, 2020 11:49
[2020-11-12] MEDS ORDERED: ACETAMINOPHEN 500 MG TAB (TYLENOL) PO PRN (12:00)
[2020-11-12] MEDS ORDERED: NON-FORMULARY MEDICATION 1 EA EA (Gabapentin 800 MG) PO SCH (12:00)
[2020-11-12] MEDS ORDERED: GABAPENTIN 600 MG (NEURONTIN) TAB PO SCH (12:00)
[2020-11-12] MEDS: cloNIDine 0.1 MG (CATAPRES) TAB PO SCH ×2 (12:37→20:22)
--- NOTE | 2020-11-12 13:41 | History & Physical-Hospitalist ---
History of Present Illness HPI/Chief Complaint Chief complaint: Dizziness History present illness: Christelle is a 64 yo female that presented to the ER yesterday after experiencing dizziness. Upon entering the room she was sitting in bed watching TV. Pt was calm, cooperative and engaged during questioning, Pt requested that gabapentin be added to her medication list for nerve pain. She also stated that she is experiencing a lot of knee pain and that "hydrocodone doesn't work as well as oxycodone for her" after having surgery on her knee [address] head came back negative for findings and renal angiogram came back normal. She is eating and drinking very little stating that she gets very nauseous. Pt reports feeling dizzy and not being able to get that sensation to go away with current medications. This HPI is from [facility] Source: patient Date Seen 11/12/20 Time Seen by a Provider: 11:00 Attending Physician Vianey Israel David F MD Referring Physician Date of Admission Nov 11, 2020 at 18:34 Home Medications & Allergies Home Medications Reviewed patient Home Medication Reconciliation performed by pharmacy medication reconciliations sample prep technician and/or nursing. Patients Allergies have been reviewed. Allergies Allergies Coded Allergies Penicillins (Verified Allergy, Unknown, 06/28/20) Sulfa (Sulfonamide Antibiotics) (Verified Allergy, Unknown, 06/28/20) doxepin (Verified Allergy, Unknown, 06/28/20) escitalopram (Verified Allergy, Unknown, 06/28/20) lithium (Verified Allergy, Unknown, 06/28/20) Past Yliqcrz-Awtxog-Hgpzum Hx Patient Social History Marrital Status: Employed/Student: employed Tobacco Use?: No Smoking Status: Never a Smoker Smokeless Tobacco Frequency: Never a User Use of E-Cig and/or Vaping dev: No Substance use?: No Alcohol Use?: No Pt feels they are or have been: No Immunizations Up To Date First/Initial COVID19 Vaccinat: N/A Tetanus Booster (TDap): Less Than 5 Years Seasonal Allergies Seasonal Allergies: No Current Status Advance Directives: Yes Advance Directive Location: Unable to obtain copy Communicates: Verbally Primary Language: Yoruba Preferred Spoken Language: Yoruba Is interpretation needed?: No Implanted or Applied Medical D: Other Past Medical History Surgeries: Gallbladder, Orthopedic Hypertension Chronic Constipation Arthritis, Chronic Back Pain Anxiety, Bipolar, Depression Blood Disorders: No Review of Systems Constitutional: see HPI, dizziness Physical Exam Physical Exam Vital Signs Vital Signs - First Documented 11/11/20 20:53 Temp 35.8 Pulse 101 Resp 20 B/P (MAP) 223/118 (153) Pulse Ox 95 O2 Delivery Room Air Capillary Refill : Less Than 3 Seconds Height, Weight, BMI Height: '" Weight: lbs. oz. kg; 30.19 BMI Method: General Appearance: No Apparent Distress, Chronically ill Eyes: Right Eye Normal Inspection, Right Eye PERRL HEENT: PERRL/EOMI, Normal ENT Inspection, Pharynx Normal, Moist Mucous Membranes Neck: Full Range of Motion, Normal Inspection, Non Tender Respiratory: Chest Non Tender, Lungs Clear, Normal Breath Sounds, No Accessory Muscle Use, No Respiratory Distress Cardiovascular: Regular Rate, Rhythm, No Edema, No Gallop, No JVD, No Murmur, Normal Peripheral Pulses Gastrointestinal: Normal Bowel Sounds, No Organomegaly, No Pulsatile Mass, Non Tender, Soft Back: Normal Inspection, No CVA Tenderness, No Vertebral Tenderness Extremity: Normal Capillary Refill, Normal Inspection, Normal Range of Motion, Non Tender, No Calf Tenderness, No Pedal Edema Neurologic/Psychiatric: Alert, Oriented x3, No Motor/Sensory Deficits, Normal Mood/Affect Skin: Normal Color, Warm/Dry Lymphatic: No Adenopathy Results Results/Procedures Labs Laboratory Tests 11/11/20 17:48 11/12/20 03:24 Patient resulted labs reviewed. Assessment/Plan Admission Diagnosis Assessment: Malignant hypertension Chronic disability Chronic pain Plan: Supportive care Monitor blood pressure Admission Status: Observation Clinical Quality Measures AMI/AHF: ASA po Prior to arrival: VIANEY Garza DO Nov 12, 2020 13:41
--- NOTE | 2020-11-12 13:54 | Progress Note - Hospitalist ---
AYLEEN RAO MED STUDENT 11/12/20 1354: Subjective HPI/CC On Admission Date Seen by Provider: Nov 12, 2020 Time Seen by Provider: 09:30 dizziness and essential hypertension Subjective/Events-last exam Christelle is a 64 yo female that presented to the ER yesterday after experiencing dizziness. Upon entering the room she was sitting in bed watching TV. Pt was calm, cooperative and engaged during questioning, Pt requested that gabapentin be added to her medication list for nerve pain. She also stated that she is experiencing a lot of knee pain and that "hydrocodone doesn't work as well as oxycodone for her" after having surgery on her knee [address] head came back negative for findings and renal angiogram came back normal. She is eating and drinking very little stating that she gets very nauseous. Pt reports feeling dizzy and not being able to get that sensation to go away with current medicat ions. Review of Systems General: No Chills; Appetite (unable to eat or drink without feeling nauseous ) HEENT: No Head Aches, No Visual Changes Pulmonary: No Dyspnea, No Cough Cardiovascular: No: Chest Pain, Palpitations Gastrointestinal: Nausea, Constipation (last bowel movement was 2 days ago); No: Vomiting, Abdominal Pain Genitourinary: No Dysuria, No Frequency Musculoskeletal: other (left knee pain) Focused Exam Time of Focused Exam: 09:30 Respiratory: Chest Non Tender, Lungs Clear, Normal Breath Sounds, No Accessory Muscle Use, No Respiratory Distress Cardiovascular: Regular Rate, Rhythm, No Edema, No Gallop, No Murmur, Normal Peripheral Pulses Skin: normal color, warm/dry Objective Exam Vital Signs Vital Signs Date Time Temp Pulse Resp B/P (MAP) Pulse Ox O2 Delivery O2 Flow Rate FiO2 11/12/20 12:42 93 11/12/20 12:33 35.8 18 134/104 (114) 97 Room Air Capillary Refill : Less Than 3 Seconds General Appearance: No Apparent Distress, WD/WN HEENT: TMs Normal, Pharynx Normal Neck: Non Tender, Supple Respiratory: Chest Non Tender, Lungs Clear, Normal Breath Sounds, No Accessory Muscle Use, No Respiratory Distress Cardiovascular: Regular Rate, Rhythm, No Edema, No Gallop, No Murmur, Normal Peripheral Pulses Gastrointestinal: Normal Bowel Sounds, Non Tender, Soft Rectal: Deferred Extremity: Other (left knee pain) Neurologic/Psychiatric: Alert, Oriented x3, No Motor/Sensory Deficits, Normal Mood/Affect Skin: Normal Color, Warm/Dry Results/Procedures Lab Laboratory Tests 11/11/20 17:48 11/12/20 03:24 Patient resulted labs reviewed. Assessment/Plan Assessment and Plan Assess & Plan/Chief Complaint essential hypertension BP of 184/94 exacerbated by dehydration and other health related issues/medications manage with antihypertensives nerve pain add gabapentin to medication list knee pain, not relieved by hydrocodone change pain medicaiton to oxycodone consult cardiology PT/OT monitor liver enzymes elevated but normalizing today dizziness continue zofran move to the 4th floor Clinical Quality Measures AMI/AHF: ASA po Prior to arrival: VIANEY Garza DO 11/13/20 0542: Subjective Subjective/Events-last exam See H&P Review of Systems General: Fatigue, Malaise Objective Exam General Appearance: No Apparent Distress, WD/WN, Chronically ill Respiratory: No Accessory Muscle Use, No Respiratory Distress, Decreased Breath Sounds Cardiovascular: Regular Rate, Rhythm Neurologic/Psychiatric: Alert, Oriented x3 Assessment/Plan Assessment and Plan Assess & Plan/Chief Complaint See H&P Supervisory-Addendum Brief Verification & Attestation Participated in pt care: history, MDM, physical Personally performed: exam, history, MDM, supervision of care Care discussed with: Medical Student Procedures: n/a Results interpretation: Verified all documentation Verification and Attestation of Medical Student E/M Service A medical student performed and documented this service in my presence. I r eviewed and verified all information documented by the medical student and made modifications to such information, when appropriate. I personally performed the physical exam and medical decision making. Vianey Israel Nov 13, 2020,05:42 AYLEEN RAO MED STUDENT Nov 12, 2020 13:54 VIANEY ISRAEL DO Nov 13, 2020 05:42
--- NOTE | 2020-11-12 14:12 | Physical Therapy Evaluation ---
PT Evaluation-General Medical Diagnosis Admission Date Nov 11, 2020 at 18:34 Medical Diagnosis: dizziness and hypertension Onset Date: Nov 11, 2020 Therapy Diagnosis Therapy Diagnosis: impaired mobility, strength, endurance, balance Precautions Precautions/Isolations: Fall Prevention, Standard Precautions Referral Physician: Vianey Israel DO Reason for Referral: Evaluation/Treatment Medical History Additional Medical History Past Medical History Surgeries: Gallbladder, Orthopedic Hypertension Chronic Constipation Arthritis, Chronic Back Pain Anxiety, Bipolar, Depression Reviewed History: Yes Social History Entry Into Home: Stairs With Railing PT Steps Into Home: 5 Prior Prior Level of Function SCALE: Activities may be completed with or without assistive devices. 8-Orxsuvuodm-czyekev completes the activity by him/herself with no assistance from a helper. 5-Set-up or Clean-up Assistance-helper sets up or cleans up; patient completes activity. [place] assists only prior to or following the activity. 4-Supervision or Touching Assistance-helper provides verbal cues and/or touching/steadying and/or contact guard assistance as patient completes activity. Assistance may be provided throughout the activity or intermittently. 3-Partial/Moderate Assistance-helper does LESS THAN HALF the effort. [place] lifts, holds or supports trunk or limbs, but provides less than half the effort. 2-Substantial/Maximal Assistance-helper does MORE THAN HALF the effort. [place] lifts or holds trunk or limbs and provides more than half the effort. 9-Ixmnyrrvp-flynne does ALL the effort. Patient does none of the effort to complete the activity. Or, the assistance of 2 or more helpers is required for the patient to complete the activity. If activity was not attempted, code reason: 7-Patient Refused. 9-Not Applicable-not attempted and the patient did not perform the activity before the current illness, exacerbation or injury. 10-Not Attempted due to Environmental Limitations-(lack of equipment, weather restraints, etc.). 88-Not Attempted due to Medical Conditions or Safety Concerns. Bed Mobility: 6 Transfers (B,C,W/C): 6 Gait: 6 Stairs: 6 Indoor Mobility (Ambulation): Independent Stairs: Independent PT Evaluation-Current Subjective Patient in bed pre tx, agrees to PT, has pain in left leg, she says she always has it from a previous injury Pt/Family Goals to be independent at home Objective Patient Orientation: Person, Place, Situation ROM/Strength ROM Lower Extremities WNL Strength Lower Extremities RLE (hip flexion 3/5, knee flexion 4/5, knee extension 4/5, dorsiflexion 5/5), LLE (hip flexion 3/5, the rest not tested due to pain) Sensory Vision: Functional Hearing: Functional Sensation Right Lower Extremit: Intact Sensation Left Lower Extremity: Impaired Transfers Roll Left to Right (QC): 6 Lying to Sitting/Side of Bed(Q: 4 Sit to Stand (QC): 4 Chair/Lev-yj-Ykewo Xfer(QC): 4 Gait Does the Patient Walk?: Yes Mode of Locomotion: Walk Anticipated Mode of Locomotion: Walk Walk 10 feet (QC): 4 Distance: 40' Gait Assistive Device: FWW Comments/Gait Description Very slow ambulation, patient is dizzy, her dizziness was worse immediately upon standing but improved after waiting for a minute (BP was 151/78 to begin with), careful ambulation and turning due to dizziness. Patient did not have a LOB was did need close guarding and was unsteady. Patient sat in recliner post tx and BP was 126/80. Balance Sitting Static: Good Sitting Dynamic: Good Standing Static: Fair Standing Dynamic: Fair Treatment BLE seated exercises x20 (AP, LAQ) Assessment/Needs Patient in recliner post tx with nurse call, phone, tray, all needs met. Patient instructed to call nurse if she needs to get up due to her dizziness. Patient has impaired mobility, strength, endurance, balance. Patient needs close guarding with ambulation. Rehab Potential: Fair PT Detention Goals Electron Microscopist Goals PT Detention Goals Time Frame: Nov 19, 2020 Roll Left & Right (QC): 6 Sit to Lying (QC): 6 Lying-Sitting on Side/Bed(QC): 6 Sit to Stand (QC): 5 Chair/Cvi-ue-Qnwmj Xfer(QC): 5 Walk 10 feet (QC): 5 Walk 50ft with 2 Turns (QC): 5 PT Plan Problem List Problem List: Activity Tolerance, Functional Strength, Safety, Balance, Gait, Transfer, Bed Mobility, ROM Treatment/Plan Treatment Plan: Continue Plan of Care Treatment Plan: Bed Mobility, Education, Functional Activity Chava, Functional Strength, Gait, Safety, Therapeutic Exercise, Transfers Treatment Duration: Nov 19, 2020 Frequency: 6 times per week Estimated Hrs Per Day: .25 hour per day Patient and/or Family Agrees t: Yes Safety Risks/Education Patient Education: Gait Training, Transfer Techniques, Correct Positioning, Safety Issues Teaching Recipient: Patient Teaching Methods: Demonstration, Discussion Response to Teaching: Reinforcement Needed Discharge Recommendations Plan Patient will perform bed mobility and transfer training, balance and endurance training, functional strengthening, stair training, gait training, and education, to improve functional mobility and independence at home. Therapy Discharge Recommendati: Scheduled Assistance, Home & Family, Post Acute PT Time/GCodes Time In: 1300 Time Out: 1319 Total Billed Treatment Time: 19 Total Billed Treatment 1 visit TACO 19' KAITLIN NEFF PT Nov 12, 2020 14:12
[2020-11-12] MEDS ORDERED: GABAPENTIN 400 MG (NEURONTIN) CAP PO SCH (14:15)
--- NOTE | 2020-11-12 14:43 | Occupational Therapy Eval ---
OT Evaluation-General/PLF Medical Diagnosis Admission Date Nov 11, 2020 at 18:34 Medical Diagnosis: dizziness and hypertension Onset Date: Nov 11, 2020 Precautions Precautions/Isolations: Fall Prevention, Standard Precautions Referral Physician: Vianey Israel DO Referral Reason: Evaluation/Treatment ADL-Prior Level of Function SCALE: Activities may be completed with or without assistive devices. 1-Lgjprmaccl-ujxwrys completes the activity by him/herself with no assistance from a helper. 5-Set-up or Clean-up Assistance-helper sets up or cleans up; patient completes activity. [place] assists only prior to or following the activity. 4-Supervision or Touching Assistance-helper provides verbal cues and/or touching/steadying and/or contact guard assistance as patient completes activity. Assistance may be provided throughout the activity or intermittently. 3-Partial/Moderate Assistance-helper does LESS THAN HALF the effort. [place] lifts, holds or supports trunk or limbs, but provides less than half the effort. 2-Substantial/Maximal Assistance-helper does MORE THAN HALF the effort. [place] lifts or holds trunk or limbs and provides more than half the effort. 8-Zfbauirja-fdhxjd does ALL the effort. Patient does none of the effort to complete the activity. Or, the assistance of 2 or more helpers is required for the patient to complete the activity. If activity was not attempted, code reason: 7-Patient Refused. 9-Not Applicable-not attempted and the patient did not perform the activity before the current illness, exacerbation or injury. 10-Not Attempted due to Environmental Limitations-(lack of equipment, weather restraints, etc.). 88-Not Attempted due to Medical Conditions or Safety Concerns. OT Care Home Goals Care Home Goals Additional Goals: 1-Demonstrate ADL Tasks, 2-Verbalize Understanding, 3- ImproveStrength/Chava 1=Demonstrate adherence to instructed precautions during ADL tasks. 2=Patient will verbalize/demonstrate understanding of assistive devices/modifications for ADL. 3=Patient will improve strength/tolerance for activity to enable patient to perform ADL's. OT Education/Plan Treatment Plan/Plan of Care Patient would benefit from OT for education, treatment and training to promote independence in ADL's, mobility, safety and/or upper extremity function for ADL's. Rehab Potential: SHORTY Shelley OT Nov 12, 2020 14:43
--- NOTE | 2020-11-12 14:53 | Occupational Therapy Eval ---
OT Evaluation-General/PLF Medical Diagnosis Admission Date Nov 11, 2020 at 18:34 Medical Diagnosis: dizziness and hypertension Onset Date: Nov 11, 2020 Therapy Diagnosis Therapy Diagnosis: decreased ADL status/weakness Precautions Precautions/Isolations: Fall Prevention, Standard Precautions Referral Physician: Vianey Israel DO Referral Reason: Evaluation/Treatment Medical History Additional Medical History depression, L knee replacement Current History ED due to high blood pressure and dizziness, sent from [facility] Social History Home: Single Level Current Living Status: Alone Entry Into Home: Stairs With Railing Steps Into Home: 5 ADL-Prior Level of Function SCALE: Activities may be completed with or without assistive devices. 7-Tyxiwreole-fsdjvot completes the activity by him/herself with no assistance from a helper. 5-Set-up or Clean-up Assistance-helper sets up or cleans up; patient completes activity. [place] assists only prior to or following the activity. 4-Supervision or Touching Assistance-helper provides verbal cues and/or touching/steadying and/or contact guard assistance as patient completes activity. Assistance may be provided throughout the activity or intermittently. 3-Partial/Moderate Assistance-helper does LESS THAN HALF the effort. [place] lifts, holds or supports trunk or limbs, but provides less than half the effort. 2-Substantial/Maximal Assistance-helper does MORE THAN HALF the effort. [place] lifts or holds trunk or limbs and provides more than half the effort. 1-Wrsswebeg-oyumdo does ALL the effort. Patient does none of the effort to complete the activity. Or, the assistance of 2 or more helpers is required for the patient to complete the activity. If activity was not attempted, code reason: 7-Patient Refused. 9-Not Applicable-not attempted and the patient did not perform the activity before the current illness, exacerbation or injury. 10-Not Attempted due to Environmental Limitations-(lack of equipment, weather restraints, etc.). 88-Not Attempted due to Medical Conditions or Safety Concerns. ADL PLOF Comments Pt reports IND with ADLs & functional mobility without AD/AE prior to knee surgery ~4 weeks ago. Since then she has had knee surgery, pt's daughter has assisted with showering and driving, and she has been using FWW Self Care: Independent Functional Cognition: Independent DME/Equipment: Bath Chair, Shower OT Current Status Subjective Pt agreeable to OT evaluation Mental Status/Objective Patient Orientation: Person, Place, Time, Situation Current Hand Dominance: Right Upper Extremity ROM WFL, BUE shoulder flexion to approx 140 degrees Upper Extremity Coordination WFL, Upper Extremity Sensation WFL, Upper Extremity Strength grossly 3+/5 ADL-Treatment Eating (QC): 6 (Per pt report) On/Off Footwear (QC): 3 (Mod A, pt able to don RLE gripper sock, assist LLE) Other Treatments Pt laying in bed, transferred supine to sit EOB, SBA. BP 151/78. Pt donned RLE gripper sock, assist with LLE. Pt used FWW to perform functional mobility around her room, 40' with CGA. Pt ambulated very slowly and dizzy (worse upon standing but improved after waiting a minute). Pt transferred to recliner, BP 126/80. Post tx, pt seated upright in recliner, call light in reach and all needs met. OT Fdc Goals Fdc Goals Time Frame: Nov 19, 2020 Eating (QC): 6 Oral Hygiene (QC): 6 Toileting Hygiene (QC): 6 Shower/Bathe Self (QC): 3 Upper Body Dressing (QC): 5 Lower Body Dressing (QC): 3 On/Off Footwear (QC): 3 Additional Goals: 1-Demonstrate ADL Tasks, 2-Verbalize Understanding, 3- ImproveStrength/Chava 1=Demonstrate adherence to instructed precautions during ADL tasks. 2=Patient will verbalize/demonstrate understanding of assistive devices/modifications for ADL. 3=Patient will improve strength/tolerance for activity to enable patient to perform ADL's. OT Education/Plan Problem List/Assessment Assessment: Decreased Activ Tolerance, Decreased UE Strength, Impaired Funct Balance, Impaired I ADL's, Impaired Self-Care Skills Discharge Recommendations Plan/Recommendations: Continue POC Treatment Plan/Plan of Care Patient would benefit from OT for education, treatment and training to promote independence in ADL's, mobility, safety and/or upper extremity function for ADL's. Plan of Care: ADL Retraining, Functional Mobility, UE Funct Exercise/Act Treatment Duration: Nov 19, 2020 Frequency: 5 times per week Estimated Hrs Per Day: .25 hour per day Rehab Potential: Fair Time/GCodes Start Time: 13:02 Stop Time: 13:19 Total Time Billed (hr/min): 17 Billed Treatment Time 1, SHORTY QUINTANA OT Nov 12, 2020 14:53
[2020-11-12] MEDS: GABAPENTIN 400 MG (NEURONTIN) CAP PO SCH (15:42)
[2020-11-12] MEDS: GABAPENTIN 600 MG (NEURONTIN) TAB PO SCH (20:21)
[2020-11-12] MEDS: TEMAZEPAM 15 MG (RESTORIL) CAP PO SCH (20:21)
[2020-11-12] MEDS ORDERED: CYANOCOBALAMIN INJ 1000 MCG/ML IM SCH (21:00)
[2020-11-13] MEDS: GABAPENTIN 600 MG (NEURONTIN) TAB PO SCH ×3 (00:07→20:51)
[2020-11-13 05:00] VITALS: BP 102/62
[2020-11-13] MEDS: CATHETER FLUSH 10 ML SYR IV SCH ×3 (06:07→22:08)
[2020-11-13 06:45] LABS: BASOPHILS # (AUTO) 0.1 10^3/uL (0.0-0.1); BASOPHILS % (AUTO) 1 % (0-10); EOSINOPHILS # (AUTO) 0.2 10^3/uL (0.0-0.3); EOSINOPHILS % (AUTO) 2 % (0-10); HEMATOCRIT 37 % (35-52); HEMOGLOBIN 11.5 g/dL (11.5-16.0); LYMPHOCYTES # (AUTO) 2.2 10^3/uL (1.0-4.0); LYMPHOCYTES % (AUTO) 32 % (12-44); MEAN CORPUSCULAR HEMOGLOBIN 28 pg (25-34); MEAN CORPUSCULAR HGB CONC 31 g/dL (32-36); MEAN CORPUSCULAR VOLUME 90 fL (80-99); MEAN PLATELET VOLUME 9.6 fL (9.0-12.2); MONOCYTES # (AUTO) 0.8 10^3/uL (0.0-1.0); MONOCYTES % (AUTO) 11 % (0-12); NEUTROPHILS # (AUTO) 3.5 10^3/uL (1.8-7.8); NEUTROPHILS % (AUTO) 53 % (42-75); PLATELET COUNT 319 10^3/uL (130-400); WHITE BLOOD COUNT 6.7 10^3/uL (4.3-11.0)
[2020-11-13 06:55] LABS: ALBUMIN 3.7 GM/DL (3.2-4.5)
[2020-11-13 06:56] LABS: POTASSIUM 3.8 MMOL/L (3.6-5.0)
[2020-11-13 06:57] LABS: CALCIUM 9.6 MG/DL (8.5-10.1)
[2020-11-13 06:58] LABS: TOTAL PROTEIN 6.3 GM/DL (6.4-8.2)
[2020-11-13 07:00] LABS: BILIRUBIN,TOTAL 0.5 MG/DL (0.1-1.0)
[2020-11-13 07:02] LABS: CREATININE SERUM 2.05 MG/DL (0.60-1.30)
[2020-11-13 08:04] VITALS: BP 57/38
[2020-11-13] MEDS ORDERED: NS IV 1000 ML 1,000 ML IV ONE ×2 (08:30→11:15)
[2020-11-13] MEDS ORDERED: VITAMIN D2 1.25 MG (50,000 UNITS) CAP PO SCH (09:00)
[2020-11-13] MEDS ORDERED: NON-FORMULARY MEDICATION 1 EA EA (Vortioxetine Hydrobromide (Trintellix) 20 MG) PO SCH (09:00)
[2020-11-13] MEDS ORDERED: BREXPIPRAZOLE 3 MG PO SCH (09:00)
[2020-11-13] MEDS ORDERED: NS IV 1000 ML 1,000 ML IV SCH (09:00)
--- NOTE | 2020-11-13 09:04 | Physical Therapy Progress Note ---
Therapy Progress Note Nurse requests to hold PT. Pt has had extremely low BP through the am and they are working to stabilize it. Will resume PT Wednesday 11/15. LIONEL CARDENAS PT Nov 13, 2020 09:04
[2020-11-13] MEDS: GABAPENTIN 400 MG (NEURONTIN) CAP PO SCH ×2 (09:31→16:14)
--- NOTE | 2020-11-13 11:13 | Progress Note - Hospitalist ---
Subjective HPI/CC On Admission Date Seen by Provider: Nov 13, 2020 Time Seen by Provider: 10:00 Chief complaint: Dizziness History present illness: Christelle is a 64 yo female that presented to the ER yesterday after experiencing dizziness. Upon entering the room she was sitting in bed watching TV. Pt was calm, cooperative and engaged during questioning, Pt requested that gabapentin be added to her medication list for nerve pain. She also stated that she is experiencing a lot of knee pain and that "hydrocodone doesn't work as well as oxycodone for her" after having surgery on her knee [address] head came back negative for findings and renal angiogram came back normal. She is eating and drinking very little stating that she gets very nauseous. Pt reports feeling dizzy and not being able to get that sensation to go away with current medications. This HPI is from [facility] Subjective/Events-last exam Patient had a hypotensive episode of 60/40 prompting normal saline bolus and Trendelenburg Holding all blood pressure medications Creatinine increased to 2.0 Liver enzymes improved Otherwise feels fine No longer dizzy now that fluid has been initiated Review of Systems General: Fatigue, Malaise Focused Exam Time of Focused Exam: 09:30 Objective Exam Vital Signs Vital Signs Date Time Temp Pulse Resp B/P (MAP) Pulse Ox O2 Delivery O2 Flow Rate FiO2 11/14/20 04:25 36.1 63 16 88/54 (65) 9 Room Air Capillary Refill : Less Than 3 Seconds General Appearance: No Apparent Distress, WD/WN, Chronically ill Respiratory: Lungs Clear, Normal Breath Sounds Cardiovascular: Regular Rate, Rhythm Neurologic/Psychiatric: Alert, Oriented x3, Depressed Affect Results/Procedures Lab Laboratory Tests 11/13/20 06:29 11/14/20 04:52 Patient resulted labs reviewed. Assessment/Plan Assessment and Plan Assess & Plan/Chief Complaint Assessment: Severe malignant hypertension new onset but now severe hypertension holding all blood pressure meds Elevated liver enzymes much improved Acute kidney injury 2.0 today giving fluids Chronic debility Chronic pain Plan: Hold all blood pressure medications IV fluids Appreciate Dr. Scott Clinical Quality Measures AMI/AHF: ASA po Prior to arrival: SILVIA Garza DO Nov 13, 2020 11:13
[2020-11-13 11:30] VITALS: BP 96/58
--- NOTE | 2020-11-13 12:04 | Cardiology Progress Note ---
Subjective Date Seen by Provider: Nov 13, 2020 Time Seen by Provider: 12:02 Subjective/Events-last exam Patient was seen at bedside, laying down comfortably, feeling better. She became severely hypotensive last night. All blood pressure medications were discontinued Review of Systems General: No Chills, No Night Sweats, No Fatigue, No Malaise, No Appetite, No Other HEENT: No Head Aches, No Visual Changes, No Eye Pain, No Ear Pain, No Dysphasia, No Sinus Congestion, No Post Nasal Drip, No Sore Throat, No Other Pulmonary: No Dyspnea, No Cough, No Pleuritic Chest Pain, No Other Cardiovascular: No: Chest Pain, Palpitations, Orthopnea, Paroxysmal Noc. Dyspnea, Edema, Lt Headedness, Other Focused Exam Time of Focused Exam: 09:30 Objective-Cardiology Exam Last Set of Vital Signs Vital Signs 11/13/20 11:30 Temp 35.3 Pulse 65 Resp 16 B/P (MAP) 96/58 (71) Pulse Ox 98 O2 Delivery Room Air I&O Intake and Output 11/13/20 00:00 Intake Total 1660 ml Output Total 2350 ml Balance -690 ml Intake Oral 1660 ml Output Urine Total 2350 ml # Voids 3 General: Alert, Oriented X3, Cooperative HEENT: Atraumatic, PERRLA Neck: Supple, No JVD, No Thyromegaly Lungs: Clear to Auscultation, Normal Air Movement Heart: Regular Rate, Normal S1, Normal S2, No Murmurs Abdomen: Normal Bowel Sounds, Soft, No Tenderness, No Hepatosplenomegaly, No Masses Extremities: No Clubbing, No Cyanosis, No Edema, Normal Pulses, No Tenderness/Swelling Skin: No Rashes, No Breakdown, No Significant Lesion Neuro: Normal Gait, Normal Speech, Strength at 5/5 X4 Ext, Normal Tone, Sensation Intact Psych/Mental Status: Mental Status NL, Mood NL Results Lab Laboratory Tests 11/13/20 06:29 A/P-Cardiology Admission Diagnosis Resistant hypertension Depression Assessment/Plan Labile hypertension, patient was severely hypertensive then became severely hypotensive. Currently I discontinued all the medication that she received yesterday which was Toprol-XL 200 mg daily, lisinopril 20 mg daily, Norvasc 10 mg daily, clonidine 0.1 twice daily and I will monitor her blood pressure and restart at a lower dose slowly. Acute renal failure, started on IV fluid, improving slowly. Continue to monitor Pain medication dependency, patient is on a large dose of multiple pain medications. 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 Status post knee replacement surgery. Requiring multiple pain medication Depression, managed by primary care physician KENNA POTTER MD Nov 13, 2020 12:04
[2020-11-13 16:00] VITALS: BP 167/69
[2020-11-13] MEDS ORDERED: cloNIDine 0.1 MG PATCH (CATAPRES TTS) TDSY TD ONE (19:15)
[2020-11-13 19:58] VITALS: BP 159/78
[2020-11-13] MEDS: TEMAZEPAM 15 MG (RESTORIL) CAP PO SCH (20:51)
[2020-11-13] MEDS ORDERED: cloNIDine 0.1 MG (CATAPRES) TAB PO ONE (21:00)
[2020-11-13] MEDS ORDERED: cloNIDine 0.2 MG (CATAPRES) TAB ONE (21:29)
[2020-11-14 00:40] VITALS: BP 102/61
[2020-11-14] MEDS: GABAPENTIN 600 MG (NEURONTIN) TAB PO SCH ×2 (00:48→05:38)
[2020-11-14 04:25] VITALS: BP 88/54
[2020-11-14] MEDS: CATHETER FLUSH 10 ML SYR IV SCH ×2 (05:24→14:11)
[2020-11-14 05:44] LABS: BASOPHILS % (AUTO) 1 % (0-10); EOSINOPHILS # (AUTO) 0.2 10^3/uL (0.0-0.3); EOSINOPHILS % (AUTO) 3 % (0-10); HEMATOCRIT 34 % (35-52); HEMOGLOBIN 10.8 g/dL (11.5-16.0); LYMPHOCYTES # (AUTO) 2.1 10^3/uL (1.0-4.0); LYMPHOCYTES % (AUTO) 40 % (12-44); MEAN CORPUSCULAR HEMOGLOBIN 29 pg (25-34); MEAN CORPUSCULAR HGB CONC 32 g/dL (32-36); MEAN CORPUSCULAR VOLUME 91 fL (80-99); MEAN PLATELET VOLUME 10.3 fL (9.0-12.2); MONOCYTES # (AUTO) 0.5 10^3/uL (0.0-1.0); MONOCYTES % (AUTO) 9 % (0-12); NEUTROPHILS # (AUTO) 2.5 10^3/uL (1.8-7.8); NEUTROPHILS % (AUTO) 47 % (42-75); PLATELET COUNT 270 10^3/uL (130-400); WHITE BLOOD COUNT 5.2 10^3/uL (4.3-11.0)
[2020-11-14 06:01] LABS: ALBUMIN 3.4 GM/DL (3.2-4.5); POTASSIUM 3.7 MMOL/L (3.6-5.0)
[2020-11-14 06:02] LABS: CALCIUM 9.1 MG/DL (8.5-10.1)
[2020-11-14 06:04] LABS: TOTAL PROTEIN 5.8 GM/DL (6.4-8.2)
[2020-11-14 06:05] LABS: BILIRUBIN,TOTAL 0.3 MG/DL (0.1-1.0)
[2020-11-14 06:07] LABS: CREATININE SERUM 0.95 MG/DL (0.60-1.30)
[2020-11-14 07:56] VITALS: BP 181/81
[2020-11-14] MEDS: GABAPENTIN 400 MG (NEURONTIN) CAP PO SCH ×2 (08:00→12:22)
[2020-11-14] MEDS ORDERED: meTOprolol SUCCINATE 100 MG (TOPROL XL) TAB PO SCH (09:00)
[2020-11-14] MEDS ORDERED: cloNIDine 0.1 MG (CATAPRES) TAB PO SCH (09:00)
--- NOTE | 2020-11-14 12:06 | Cardiology Progress Note ---
Subjective Date Seen by Provider: Nov 14, 2020 Time Seen by Provider: 12:05 Subjective/Events-last exam Patient was seen and evaluated at bedside, feeling better. Blood pressure is better Review of Systems General: No Chills, No Night Sweats, No Fatigue, No Malaise, No Appetite, No Other HEENT: No Head Aches, No Visual Changes, No Eye Pain, No Ear Pain, No Dysphasia , No Sinus Congestion, No Post Nasal Drip, No Sore Throat, No Other Pulmonary: No Dyspnea, No Cough, No Pleuritic Chest Pain, No Other Cardiovascular: No: Chest Pain, Palpitations, Orthopnea, Paroxysmal Noc. Dyspnea, Edema, Lt Headedness, Other Focused Exam Time of Focused Exam: 09:30 Objective-Cardiology Exam Last Set of Vital Signs Vital Signs 11/14/20 11/14/20 07:56 08:00 Temp 36.6 Pulse 97 Resp 16 B/P (MAP) 181/81 (114) Pulse Ox 97 O2 Delivery Room Air I&O Intake and Output 11/14/20 00:00 Intake Total 3270 ml Balance 3270 ml Intake Oral 1270 ml IV Total 2000 ml # Voids 8 General: Alert, Oriented X3, Cooperative HEENT: Atraumatic, PERRLA Neck: Supple, No JVD, No Thyromegaly Lungs: Clear to Auscultation, Normal Air Movement Heart: Regular Rate, Normal S1, Normal S2, No Murmurs Abdomen: Normal Bowel Sounds, Soft, No Tenderness, No Hepatosplenomegaly, No Masses Extremities: No Clubbing, No Cyanosis, No Edema, Normal Pulses, No Tenderness/Swelling Skin: No Rashes, No Breakdown, No Significant Lesion Neuro: Normal Gait, Normal Speech, Strength at 5/5 X4 Ext, Normal Tone, Sensation Intact Psych/Mental Status: Mental Status NL, Mood NL Results Lab Laboratory Tests 11/14/20 04:52 A/P-Cardiology Admission Diagnosis Resistant hypertension Depression Assessment/Plan Labile hypertension, patient was severely hypertensive then became severely hypotensive. Currently I discontinued all the medication that she received yesterday which was Toprol-XL 200 mg daily, lisinopril 20 mg daily, Norvasc 10 mg daily. I restarted clonidine 0.1 mg twice daily and will follow up as an outpatient Status post acute renal failure, better at this time. Pain medication dependency, patient is on a large dose of multiple pain medications. 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 Status post knee replacement surgery. Requiring multiple pain medication Depression, managed by primary care physician Okay for discharge from cardiology standpoint and follow-up as an outpatient KENNA POTTER MD Nov 14, 2020 12:06
[2020-11-14 12:13] VITALS: BP 151/72
[2020-11-14] MEDS ORDERED: CLN.1T PO (13:03)
--- NOTE | 2020-11-14 13:04 | Discharge Summary ---
Discharge Summary Hospital Course Was the Problem List Reviewed?: Yes Problems/Dx: (1) Malignant hypertension Status: Acute (2) Elevated LFTs Status: Acute (3) Hypertension Status: Acute (4) Nausea Hospital Course Date of Admission: Nov 11, 2020 at 18:34 Admission Diagnosis : Family Physician/Provider: Sal Meza MD Date of Discharge: 11/14/20 Discharge Diagnosis: New onset malignant hypertension, episode of hypotension due to medications, acute kidney injury now resolved with IV fluid, chronic pain Hospital Course: Patient was admitted for new onset malignant hypertension. Multiple meds started then had an episode of hypotension with acute kidney injury resolved with IV fluid. Cardiology recommended clonidine twice daily and close follow-up as an outpatient to prevent any iatrogenic hypotension. Labs and Pending Lab Test: Laboratory Tests 11/14/20 04:52: White Blood Count 5.2, Red Blood Count 3.79L, Hemoglobin 10.8L, Hematocrit 34L, Mean Corpuscular Volume 91, Mean Corpuscular Hemoglobin 29, Mean Corpuscular Hemoglobin Concent 32, Red Cell Distribution Width 15.1H, Platelet Count 270, Mean Platelet Volume 10.3, Immature Granulocyte % (Auto) 0, Neutrophils (%) (Auto) 47, Lymphocytes (%) (Auto) 40, Monocytes (%) (Auto) 9, Eosinophils (%) (Auto) 3, Basophils (%) (Auto) 1, Neutrophils # (Auto) 2.5, Lymphocytes # (Auto) 2.1, Monocytes # (Auto) 0.5, Eosinophils # (Auto) 0.2, Basophils # (Auto) 0.0, Immature Granulocyte # (Auto) 0.0, Sodium Level 141, Potassium Level 3.7, Chloride Level 107, Carbon Dioxide Level 22, Anion Gap 12, Blood Urea Nitrogen 18, Creatinine 0.95, Estimat Glomerular Filtration Rate 60, BUN/Creatinine Ratio 19, Glucose Level 147H, Calcium Level 9.1, Corrected Calcium 9.6, Total Bilirubin 0.3, Aspartate Amino Transf (AST/SGOT) 21, Alanine Aminotransferase (ALT/SGPT) 36, Alkaline Phosphatase 167H, Total Protein 5.8L, Albumin 3.4 Home Meds Active Reported Cyanocobalamin Injection (Cyanocobalamin) 1,000 Mcg/Ml Inj 1,000 Mcg IM MONTHLY Tylenol Extra Strength (Acetaminophen) 500 Mg Tablet 500-1,000 Mg PO Q8H PRN Ibuprofen 200 Mg Tablet 400-600 Mg PO Q8H PRN Amlodipine Besylate 10 Mg Tablet 10 Mg PO HS LAST FILLED 07-26-2020 #90/90 DAY SUPPLY Vitamin D2 (Ergocalciferol (Vitamin D2)) 1,250 Mcg Capsule 1,250 Mcg PO SAT Tizanidine HCl 4 Mg Tablet 6 Mg PO 0000,0400,1999 TAKES 1 & (4MG) TABS Rexulti (Brexpiprazole) 3 Mg Tablet 3 Mg PO DAILY Trintellix (Vortioxetine Hydrobromide) 20 Mg Tablet 20 Mg PO DAILY Gabapentin 600 Mg Tablet 600 Mg PO [id number] Temazepam 30 Mg Capsule 30 Mg PO HS Lisinopril 10 Mg Tablet 10 Mg PO DAILY PRN Oxycodone HCl 5 Mg Tablet 5-10 Mg PO Q4- 6H PRN Tramadol HCl 50 Mg Tablet 50-100 Mg PO Q6H PRN Metoprolol Succinate 100 Mg Tab.er.24h 100 Mg PO DAILY Hydrocodone-Acetamin 10-325 mg (Hydrocodone/Acetaminophen) 1 Each Tablet 1 Each PO QID PRN Gabapentin 800 Mg Tablet 800 Mg PO 0800.1200,1600 Assessment/Pt Instructions [facility] 1 week Discharge Planning: <30 minutes discharge planning Discharge Instructions Discharge Diet: No Restrictions Activity as Tolerated: Yes Discharge Physical Examination Vital Signs Vital Signs Date Time Temp Pulse Resp B/P (MAP) Pulse Ox O2 Delivery O2 Flow Rate FiO2 11/14/20 12:13 36.7 79 16 151/72 (98) 94 Room Air General Appearance: No Apparent Distress, WD/WN Respiratory: Lungs Clear Cardiovascular: Regular Rate, Rhythm Neurologic/Psychiatric: Alert, Oriented x3 Allergies: Coded Allergies: Penicillins (Verified Allergy, Unknown, 06/28/20) Sulfa (Sulfonamide Antibiotics) (Verified Allergy, Unknown, 06/28/20) doxepin (Verified Allergy, Unknown, 06/28/20) escitalopram (Verified Allergy, Unknown, 06/28/20) lithium (Verified Allergy, Unknown, 06/28/20) Discharge Summary Date of Admission Nov 11, 2020 at 18:34 Date of Discharge Discharge Date: Nov 14, 2020 Admission Diagnosis Assessment: Malignant hypertension Chronic disability Chronic pain Plan: Supportive care Monitor blood pressure Discharge Diagnosis Assessment: Severe malignant hypertension new onset but now severe hypertension holding all blood pressure meds Elevated liver enzymes much improved Acute kidney injury 2.0 today giving fluids Chronic debility Chronic pain Plan: Hold all blood pressure medications IV fluids Appreciate Dr. Scott Clinical Quality Measures AMI/AHF: ASA po Prior to arrival: SILVIA Garza DO Nov 14, 2020 13:04
[2020-11-14 14:59] VITALS: BP 151/72
== END 2020-11-14 14:35 | disposition home or self-care (01) ==
LOC: EDUNIT# 17:29 → ER 17:30 → CSD 18:34 → 4TH 11-12 15:10
PROVIDERS: ADMIT Family Medicine; ATTEND Internal Medicine
DX: I10 Essential (primary) hypertension (principal); I95.2 Hypotension due to drugs; N17.9 Acute kidney failure, unspecified; R94.5 Abnormal results of liver function studies; R42 Dizziness and giddiness; R11.2 Nausea with vomiting, unspecified; K59.09 Other constipation; M19.90 Unspecified osteoarthritis, unspecified site; G89.29 Other chronic pain; M54.9 Dorsalgia, unspecified; F41.9 Anxiety disorder, unspecified; F31.9 Bipolar disorder, unspecified
CPT/HCPCS: 70496; 70498; 76770; 80053 ×4; 80306; 81000; 83880; 85025 ×4; 93005 ×2; 93306; 93975; 96374; 96375; 96376; 97162; 97166; 99284; G0480; 36415; 80329; G0378

== ENCOUNTER → 2020-12-01 | Outpatient (CLI) | payer MEDICARE ==
[~2020-12-01] MED LIST changes: +ACET-2267 PO; +AMLO-251 PO; +BREX3TAB PO; +CLN.1T PO; +CLON1PAT34 TD; +CNC1KV IM; +ERGO1250 PO; +GBPN600T PO; +IBUP-2473 PO; +OXYC5TAB PO; +TEMA30CA PO; +TIZA4TAB4 PO; +TRAM50TA3 PO; +VORT20TA PO
== END ==
LOC: RAD 14:15
PROVIDERS: ATTEND Internal Medicine Cardiovascular Disease
DX: I10 Essential (primary) hypertension (principal)